=== PATIENT | male | born 1945 | race Caucasian/White ===

== ENCOUNTER → 2017-09-28 | Outpatient (CLI) | payer MEDICARE ==
[2017-09-28 11:57] LABS: Basophils # (A) 0.1 k/uL (0-0.2); Basophils % (A) 1 %; Eosinophils # (A) 0.1 k/uL (0-0.7); Eosinophils % (A) 1 %; HCT 51.9 % (39.0-53.0); Lymphocytes # (A) 1.6 k/uL (1.0-4.8); Lymphocytes % (A) 17 %; MCHC 32.8 g/dL (31.0-37.0); MCV 88.5 fL (80.0-100.0); Mean Platelet Volume 7.3; Monocytes # (A) 0.4 k/uL (0-1.0); Monocytes % (A) 4 %; Neutrophils # (A) 7.1 k/uL (1.3-7.7); Neutrophils % (A) 77 %; Platelet Count 314 k/uL (150-450); RBC 5.86 m/uL (4.30-5.90); RDW 13.4 % (11.5-15.5); WBC 9.3 k/uL (3.8-10.6)
[2017-09-28 12:04] LABS: Potassium 3.5 mmol/L (3.5-5.1)
[2017-09-28 12:34] LABS: Prostate Specific Antigen 5.44 ng/mL (0.00-4.00)
== END | disposition home or self-care (01) ==
LOC: LABWHC1 11:15
PROVIDERS: ATTEND Urology
DX: Z01.818 Encounter for other preprocedural examination (principal); R94.31 Abnormal electrocardiogram [ECG] [EKG]; I10 Essential (primary) hypertension; C61 Malignant neoplasm of prostate; E78.5 Hyperlipidemia, unspecified; R31.29 Other microscopic hematuria; Z01.812 Encounter for preprocedural laboratory examination
CPT/HCPCS: 36415; 80048; 84153; 85025; 87086; 93005

== ENCOUNTER 2017-10-08 11:08 | Day surgery (SDC) | payer MEDICARE ==
[~2017-10-08 11:08] MED LIST: DEXAMETHASONE SOD PHOSPHATE 10 MG/ML 1 ML VIAL IV ONE; HEPARIN SODIUM,PORCINE 5,000 UNIT/ML 1 ML VIAL SQ ONE; LACTATED RINGERS 1,000 ML IV SCH; MIDAZOLAM 2 MG/2 ML VIAL IV PRN; ONDANSETRON ODT 4 MG TAB PO ONE; ceFAZolin IN SWFI 2 GM/20 ML SYRINGE IVP ONE; fentaNYL (PF) 50 MCG/ML 2 ML AMP IV PRN
[2017-10-08] MEDS ORDERED: LACTATED RINGERS 1,000 ML IV ONE ×2 (12:05→15:00)
[2017-10-08] MEDS ORDERED: ONDANSETRON 4 MG/2 ML VIAL IVP ONE (12:10)
[2017-10-08] MEDS ORDERED: hydrALAZINE HCL 20 MG/ML 1 ML VIAL IVP ONE (14:10)
[2017-10-08] MEDS ORDERED: GLYCOPYRROLATE 0.2 MG/ML 2 ML VIAL ONE (14:29)
[2017-10-08] MEDS ORDERED: MIDAZOLAM 2 MG/2 ML VIAL ONE (14:29)
[2017-10-08] MEDS ORDERED: ePHEDrine SULFATE/0.9% NACL/PF 50 MG/5 ML SYRINGE IV ONE (14:29)
[2017-10-08] MEDS ORDERED: ESMOLOL 100 MG/10 ML VIAL ONE (14:29)
[2017-10-08] MEDS ORDERED: VECURONIUM 10 MG VIAL IV ONE (14:29)
[2017-10-08] MEDS ORDERED: SUCCINYLCHOLINE CHLORIDE 100 MG/5 ML SYR IV ONE (14:29)
[2017-10-08] MEDS ORDERED: PROPOFOL 10 MG/ML 20 ML VIAL IV ONE (14:29)
[2017-10-08] MEDS ORDERED: NEOSTIGMINE 1 MG/ML 10 ML VIAL ONE (14:29)
[2017-10-08] MEDS ORDERED: fentaNYL (PF) 50 MCG/ML 2 ML AMP ONE (14:29)
[2017-10-08] MEDS ORDERED: LIDOCAINE 1% INJ 10MG/ML (20 ML MDV) ONE (14:29)
[2017-10-08] MEDS ORDERED: MORPHINE SULFATE 10 MG/ML SYRINGE ONE (14:29)
[2017-10-08] MEDS ORDERED: ceFAZolin IN SWFI 2 GM/20 ML SYRINGE IVP ONE (14:45)
[2017-10-08] MEDS ORDERED: BUPIVACAINE (PF) 0.25% 30 ML VIAL SQ ONE (15:10)
[2017-10-08] MEDS ORDERED: IPRATROPIUM-ALBUTEROL 3 ML NEB INHALATION PRN (18:39)
--- NOTE | 2017-10-08 18:39 | P.OP ---
Date of Procedure: 10/08/17 Preoperative Diagnosis: Adenocarcinoma of the Prostate, Clinical Stage TI CNX M0, Bladder Calculi Postoperative Diagnosis: Same Procedure(s) Performed: Robotic-assisted Laparoscopic Prostatectomy (RALP) with Bilateral Pelvic Lymphadenectomy, Removal of Bladder Calculi Anesthesia: NORMA Surgeon: Liam Ramírez Recyclable Materials Collector #1: Ekaterina Pereira Estimated Blood Loss (ml): 100 IV fluids (ml): 1,600 Pathology: other (Prostate, seminal vesicles, bladder calculi, bilateral pelvic lymph nodes) Condition: stable Disposition: PACU Indications for Procedure: He is a 72 year-old male with a history of BPH and kidney stones. He has no family history of prostate cancer, but his PSA level has risen to 7.8. JACINTA reveals the prostate to be moderately enlarged and smooth. A KUB x-ray and CT scan showed multiple renal and bladder calculi for which he declines treatment at this time. He underwent a prostate ultrasound with biopsies, revealing Devonte 7 adenocarcinoma in 2 of 12 biopsies. Optimal treatment options are RALP and IMRT, and the pros and cons of each were discussed at length. He has elected to undergo a right nerve-sparing RALP with removal of his bladder calculi. He understands the possible need for adjuvant therapy. He also understands the risk of post-op ED and is not overly concerned about this. Operative Findings: 3 bladder calculi. No evidence of extraprostatic disease. Description of Procedure: The patient was taken in the operating room and placed in the dorsal lithotomy position, with his legs supported in Frandy stirrups. He was carefully positioned on a beanbag for stability. The abdomen and external genitalia were prepped and draped sterilely. A Guallpa catheter was inserted. The Veress needle was passed through the anterior abdominal wall immediately cephalad to the umbilicus, and insufflation was performed to a pressure of 20 mm Hg. Once insufflation was performed, the Veress needle was removed and a supraumbilical incision was made, through which a 12 mm camera port was placed. Under camera guidance, 3 8 mm robotic ports were placed, 2 on the left and one on the right. An additional 12 mm port was placed on the right lateral side for use as an billing assistant port. A 5 mm port was placed to the right of the camera port for suction. The patient was placed in Trendelenburg position, and docking was then performed to the da Alena system utilizing a 4-arm approach. The abdomen was examined. The sigmoid colon was mobilized out of the pelvis. The peritoneum was incised lateral to the medial umbilical ligaments bilaterally , exposing the pubis. The peritoneum was then incised across the midline, allowing the bladder flap to be taken down. The endopelvic fascia was opened bilaterally, and muscular attachments from the urogenital diaphragm were swept away from the prostate. Bilateral pelvic lymphadenectomies were performed in the standard fashion. The peritoneal incisions were extended in a cephalad direction, and the vas deferens were divided bilaterally. Margins of dissection were the bifurcation of the iliac vessels proximally, the circumflex iliac vein distally, the external iliac artery laterally, and the obturator nerve medially. A combination of sharp and blunt dissection was used. Care was taken to avoid any neurovascular injury, and the use of monopolar electrocautery was avoided immediately adjacent to neurovascular structures. The lymphatic package was clipped distally. No enlarged lymph nodes were encountered. There were no complications. The vesical neck was incised transversely, down to the lumen. The Guallpa catheter was brought out through the anterior vesical neck incision and was used for traction. The posterior aspect of the vesical neck was incised, such that the full-thickness of the vesical neck was divided. At this time, 3 bladder calculi were removed. The bladder was inspected through the open vesical neck, and no additional calculi were seen. The anterior layer of the Denonvilliers fascia was incised, exposing the vas deferens. Each were isolated and divided. Next, each of the seminal vesicles were dissected away from adjacent tissues, and vascular attachments were cauterized and divided. The posterior leaf of Denonvilliers fascia was incised transversely, allowing entry into the plane between the prostate and rectum. With lateral spreading, this plane was developed down to the apex. This exposed the lateral vascular pedicles bilaterally. These were clipped and divided in an antegrade fashion, down to the apex. The use of electrocautery was avoided on the right side to prevent thermal damage to the nerves, as the right neurovascular bundle was preserved. The remaining apical attachments were swept away from the prostate. The dorsal venous complex was incised, as well as periurethral tissue. At this point, only the urethra remained intact. This was transected immediately distal to the prostatic apex using cold scissors. The specimen was placed within a specimen bag. The dorsal venous complex was sutured using a V-Loc suture in a running fashion. A second V-Loc suture was then used to place the Max stitch, incorporating the rhabdosphincter and the edge of Denonvilliers fascia. This allowed the bladder to be taken down to the urethra, leaving the vesical neck immediately adjacent to the urethra. The vesicourethral anastomosis was then performed using a V-Loc suture in a running fashion. After completing the anastomosis, an 18-Belarusian Guallpa catheter was placed and approximately 150 mL of 0.9 normal saline were instilled into the bladder. No extravasation of irrigant from the vesicourethral anastomosis was noted. Hemostasis was noted at this time to be excellent, and it was thus felt that a drain was unnecessary. The patient was returned to the supine position. Undocking was performed, and the specimen bag sutures were passed through the camera port. After removing all the ports and allowing all of the CO2 to be released from the peritoneal cavity, the camera port incision was enlarged to allow removal of the surgical specimen. The fascia of this incision was then closed using 0 Vicryl suture in an interrupted [id number] fashion. Each of the skin incisions were then closed using 4-0 Monocryl suture in a subcuticular fashion. Marcaine was injected at each of the incision sites. Dermabond was applied to each incision. The Guallpa catheter was connected to gravity drainage. All sponge and needle counts were correct. The patient tolerated the procedure well was taken to the recovery room in stable condition.
[2017-10-08] MEDS ORDERED: ONDANSETRON 4 MG/2 ML VIAL IVP PRN (18:40)
[2017-10-08] MEDS ORDERED: MORPHINE SULFATE 4 MG/0.8 ML SYRINGE (INJ) IVP PRN (18:40)
[2017-10-08] MEDS ORDERED: KETOROLAC 30 MG/ML 1 ML VIAL IVP PRN (18:40)
[2017-10-08 20:37] VITALS: BMI 31.6
[2017-10-08] MEDS ORDERED: LISINOPRIL 20 MG TAB PO SCH (21:00)
[2017-10-08] MEDS ORDERED: ATORVASTATIN 10 MG TAB PO SCH (21:00)
[2017-10-08] MEDS ORDERED: METOPROLOL SUCCINATE (ER) 50 MG TAB.ER.24H PO SCH (21:00)
[2017-10-08] MEDS ORDERED: FLUTICASONE 50MCG/SPRAY NASAL 16GM EA NOSTRIL SCH (21:00)
[2017-10-08] MEDS ORDERED: amLODIPine 10 MG TAB PO SCH (21:00)
[2017-10-08] MEDS: DEXTROSE 5%-0.45% NACL 1,000 ML IV SCH (22:25)
[2017-10-08] MEDS: HEPARIN SODIUM,PORCINE 5,000 UNIT/ML 1 ML VIAL SQ SCH (22:26)
[2017-10-09] MEDS: DEXTROSE 5%-0.45% NACL 1,000 ML IV SCH ×2 (03:55→06:03)
[2017-10-09] MEDS: ACETAMINOPHEN TAB 325 MG TAB PO PRN ×2 (05:55→09:44)
[2017-10-09] MEDS ORDERED: LOSARTAN-HCTZ 50-12.5 MG 1 EACH TAB PO SCH (09:00)
[2017-10-09 09:21] VITALS: BP 120/66; PULSE 53; RESP 20; TEMP 99.2
[2017-10-09] MEDS: HEPARIN SODIUM,PORCINE 5,000 UNIT/ML 1 ML VIAL SQ SCH (09:23)
--- NOTE | 2017-10-09 10:09 | P.DS ---
Providers Attending physician: Liam Ramírez Primary care physician: [facility] Course: The patient was admitted yesterday for robotic-assisted radical prostatectomy by . He did well overnight. His vital signs are stable. He is tolerated a liquid diet. He'll ambulate and eat a regular diet this morning. If his pain is under control he can ambulate and dress he'll be discharged home. He'll go home with a Guallpa catheter. He's been given a prescription of Strawn. He'll follow-up in the office in [address] Ramírez for catheter removal and path report. Postoperative instructions have been given. Patient Condition at Discharge: Good Plan - Discharge Summary Discharge Rx Participant: No New Discharge Prescriptions: New Ciprofloxacin HCl [Cipro] 250 mg PO Q12HR #6 tablet Hydrocodone/Acetaminophen [Strawn 5-325] 1 - 2 each PO Q4HR PRN #20 tab PRN Reason: Pain No Action Tamsulosin [Flomax] 0.4 mg PO HS Lisinopril [Zestril] 20 mg PO HS Cholecalciferol [Vitamin D3] 1,000 unit PO DAILY Ascorbic Acid [Vitamin C] 500 mg PO DAILY amLODIPine [Norvasc] 10 mg PO HS Aspirin 81 mg PO HS Vitamin E 100 unit PO DAILY Triamcinolone Acetonide [Nasacort] 2 spray EA NOSTRIL HS Theralogix 1 tab PO DAILY Simvastatin [Zocor] 20 mg PO HS Metoprolol Succinate [Toprol Xl] 50 mg PO HS Losartan/Hydrochlorothiazide [Losartan-Hctz 100-25 mg Tab] 1 each PO DAILY Ipratropium-Albuterol Nebulize [Duoneb 0.5 mg-3 mg/3 ml Soln] 3 ml INHALATION Q6H PRN PRN Reason: Dyspnea Glucosamine/Chondr Lynn A Sod [Osteo Bi-Flex Caplet] 1 each PO DAILY Acetaminophen [Tylenol Arthritis] 1,300 mg PO BID Discharge Medication List Acetaminophen [Tylenol Arthritis] 1,300 mg PO BID 09/29/17 [History] Ascorbic Acid [Vitamin C] 500 mg PO DAILY 09/29/17 [History] Aspirin 81 mg PO HS 09/29/17 [History] Cholecalciferol [Vitamin D3] 1,000 unit PO DAILY 09/29/17 [History] Glucosamine/Chondr Lynn A Sod [Osteo Bi-Flex Caplet] 1 each PO DAILY 09/29/17 [ History] Ipratropium-Albuterol Nebulize [Duoneb 0.5 mg-3 mg/3 ml Soln] 3 ml INHALATION Q6H PRN 09/29/17 [History] Lisinopril [Zestril] 20 mg PO HS 09/29/17 [History] Losartan/Hydrochlorothiazide [Losartan-Hctz 100-25 mg Tab] 1 each PO DAILY 09/29 [History] Metoprolol Succinate [Toprol Xl] 50 mg PO HS 09/29/17 [History] Simvastatin [Zocor] 20 mg PO HS 09/29/17 [History] Tamsulosin [Flomax] 0.4 mg PO HS 09/29/17 [History] Theralogix 1 tab PO DAILY 09/29/17 [History] Triamcinolone Acetonide [Nasacort] 2 spray EA NOSTRIL HS 09/29/17 [History] Vitamin E 100 unit PO DAILY 09/29/17 [History] amLODIPine [Norvasc] 10 mg PO HS 09/29/17 [History] Ciprofloxacin HCl [Cipro] 250 mg PO Q12HR #6 tablet 10/08/17 [Rx] Hydrocodone/Acetaminophen [Strawn 5-325] 1 - 2 each PO Q4HR PRN #20 tab 10/08/17 [Rx] Follow up Appointment(s)/Referral(s): Liam Ramírez MD [STAFF PHYSICIAN] - 10/18/17 Activity/Diet/Wound Care/Special Instructions: Discharge home with Guallpa catheter. No lifting, driving, or strenuous activity. Patient is to begin taking ciprofloxacin on 10/17/2017. Discharge Disposition: HOME SELF-CARE
== END 2017-10-09 14:52 | disposition home or self-care (01) ==
LOC: OR 11:08 → 3SUR 18:28 → OR 10-09 14:52
PROVIDERS: ATTEND Urology
DX: C61 Malignant neoplasm of prostate (principal); N21.0 Calculus in bladder; N20.0 Calculus of kidney; I10 Essential (primary) hypertension; I25.10 Atherosclerotic heart disease of native coronary artery without angina pectoris; E78.00 Pure hypercholesterolemia, unspecified; J44.9 Chronic obstructive pulmonary disease, unspecified; J61 Pneumoconiosis due to asbestos and other mineral fibers; M19.90 Unspecified osteoarthritis, unspecified site; G56.00 Carpal tunnel syndrome, unspecified upper limb; E66.9 Obesity, unspecified; Z68.30 Body mass index [BMI] 30.0-30.9, adult; Z79.82 Long term (current) use of aspirin; Z79.51 Long term (current) use of inhaled steroids; Z79.899 Other long term (current) drug therapy; Z91.030 Bee allergy status; Z87.891 Personal history of nicotine dependence
CPT/HCPCS: 38571; 51050; 55866; 88307; 88309; 88300; 82365; J2250; J1644 ×2; J1100; J2710; J2270; J2405; J2001; J3010; J1885; J0330; J2704; J0690; 86850; 86900; 86901

== ENCOUNTER → 2017-11-18 | Outpatient (CLI) | payer MEDICARE | END | disposition home or self-care (01) | LOC: LABWHC1 08:30 | PROVIDERS: ATTEND Urology | DX: C61 Malignant neoplasm of prostate (principal) | CPT/HCPCS: 36415; 84153 ==

== ENCOUNTER → 2018-02-15 | Outpatient (CLI) | payer MEDICARE | END | disposition home or self-care (01) | LOC: LABWHC1 07:59 | PROVIDERS: ATTEND Urology | DX: C61 Malignant neoplasm of prostate (principal) | CPT/HCPCS: 36415; 84153 ==

== ENCOUNTER → 2018-05-17 | Outpatient (CLI) | payer MEDICARE | END | disposition home or self-care (01) | LOC: LABWHC1 09:13 | PROVIDERS: ATTEND Urology | DX: C61 Malignant neoplasm of prostate (principal) | CPT/HCPCS: 36415; 84153 ==

== ENCOUNTER → 2018-10-17 | Outpatient (CLI) | payer MEDICARE ==
--- NOTE | 2018-10-17 10:46 | XR ---
EXAMINATION TYPE: XR KUB DATE OF EXAM: 10/17/2018 10:33 AM CLINICAL HISTORY: Calculus of ureter with stents. TECHNIQUE: Two Upright KUB images of the abdomen are obtained. COMPARISON: Abdominal x-ray May 25, 2017. CT abdomen and pelvis May 26, 2017. FINDINGS: There is interval placement of bilateral double-J ureter stents. Left-sided nephrolithiasis remains present with 5 --6 scattered calculi measuring up to 9 mm on long axis. There is suspected s ome passage of right sided calculus into proximal right ureter with 12 mm calculus suspected though t his is suboptimal in evaluation due to marked overlying colonic fecal material. Previously visualized 12 mm calculus lower pole of the right kidney is not clearly seen on today's plain films. Overall dextroconvex scoliosis with multilevel spurring is redemonstrated. Lung bases are clear. Over all nonobstructive bowel gas pattern. IMPRESSION: New double-J ureter stents. Stable left-sided nephrolithiasis. Possible beginning passage of right ureter calculus to proximal ureter level.
== END | disposition home or self-care (01) ==
LOC: LABWHC1 09:41
PROVIDERS: ATTEND Urology
DX: N20.0 Calculus of kidney (principal); C61 Malignant neoplasm of prostate; Z96.0 Presence of urogenital implants
CPT/HCPCS: 36415; 74018; 84153

== ENCOUNTER → 2018-10-28 | Outpatient (CLI) | payer MEDICARE ==
[2018-10-28 11:05] LABS: Potassium 3.9 mmol/L (3.5-5.1)
[2018-10-28 11:10] LABS: Anisocytosis Slight; Basophils # (A) 0.1 k/uL (0-0.2); Basophils % (A) 1 %; Eosinophils # (A) 0.3 k/uL (0-0.7); Eosinophils % (A) 4 %; HCT 37.7 % (39.0-53.0); HGB 11.3 gm/dL (13.0-17.5); Hypochromasia Moderate; Lymphocytes % (A) 12 %; MCH 25.3 pg (25.0-35.0); MCV 84.3 fL (80.0-100.0); Mean Platelet Volume 6.8; Monocytes # (A) 0.6 k/uL (0-1.0); Monocytes % (A) 7 %; Neutrophils # (A) 6.2 k/uL (1.3-7.7); Neutrophils % (A) 75 %; Platelet Count 320 k/uL (150-450); RBC 4.46 m/uL (4.30-5.90); RDW 17.4 % (11.5-15.5); WBC 8.3 k/uL (3.8-10.6)
== END | disposition home or self-care (01) ==
LOC: LABPAT 09:27
PROVIDERS: ATTEND Urology
DX: Z01.812 Encounter for preprocedural laboratory examination (principal); N20.0 Calculus of kidney
CPT/HCPCS: 36415; 80051; 82565; 84520; 85025

== ENCOUNTER 2018-10-31 06:51 | Day surgery (SDC) | payer MEDICARE ==
[2018-10-26 14:08] VITALS: BMI 28.1
--- NOTE | 2018-10-27 08:15 | P.GSHP ---
History of Present Illness H&P Date: 10/27/18 Chief Complaint: Renal calculi The patient is a 73-year-old white male who underwent a robotic-assisted laparoscopic prostatectomy for prostate cancer in September 2017. He was hospitalized in [place] in June 2018 with Enterobacter sepsis of UTI origin, complicated by an 8 mm right proximal ureteral calculus. He underwent bilateral ureteral stent insertion at that time, and had a lengthy hospitalization. His stents remain in place. A KUB x-ray shows an 8 mm right proximal ureteral calculus, as well as multiple left renal calculi measuring up to 9 mm in size. He now comes for extracorporal shockwave lithotripsy (ESWL) to treat the larger of the left renal calculi. - Constitutional Constitutional: Denies chills, Denies fever - Gastrointestinal Gastrointestinal: Denies nausea, Denies vomiting - Genitourinary (Female) Genitourinary: Reports kidney stones, Denies hematuria Past Medical History Past Medical History: Cancer, Hyperlipidemia, Hypertension, Osteoarthritis (OA), Prostate Disorder Additional Past Medical History / Comment(s): hx. prostate cancer 2018, hx. asbestosis, chronic back & neck pain, hx. sepsis in June in [place] due to kidney stone blocking ureter, foot swelling History of Any Multi-Drug Resistant Organisms: None Reported Past Surgical History: Appendectomy, Cholecystectomy, Heart Catheterization, Orthopedic Surgery, Prostate Surgery Additional Past Surgical History / Comment(s): ORIF right wrist, right shoulder surg, prostatectomy, cystoscopy w/bilateral ureteral stents Past Anesthesia/Blood Transfusion Reactions: No Reported Reaction Smoking Status: Former smoker - Past Family History Mother Family Medical History: No Reported History Medications and Allergies Home Medications Medication Instructions Recorded Confirmed Type Acetaminophen [Tylenol Arthritis] 1,300 mg PO BID PRN 09/29/17 10/26/18 History Metoprolol Succinate [Toprol Xl] 50 mg PO HS 09/29/17 10/26/18 History amLODIPine [Norvasc] 10 mg PO HS 09/29/17 10/26/18 History Allergies Allergy/AdvReac Type Severity Reaction Status Date / Time bee pollen Allergy Anaphylaxis Verified 10/26/18 14:03 Surgical - Exam - General well developed, well nourished, no distress - Respiratory normal respiratory effort, clear to auscultation - Cardiovascular Rhythm: regular Abnormal Heart Sounds: no systolic murmur, no diastolic murmur, no rub, no S3 Gallop, no S4 Gallop, no click, no other - Psychiatric oriented to time, oriented to person, oriented to place, speech is normal, memory intact Assessment and Plan (1) Calculus of kidney Status: Acute Code(s): N20.0 - CALCULUS OF KIDNEY SNOMED Code(s): 83145855 (2) Calculus of ureter Status: Acute Code(s): N20.1 - CALCULUS OF URETER SNOMED Code(s): 96151548 Plan: I discussed with the patient and his the treatment of the calculus with ESWL to decrease the left renal calculi stone burden. I explained the possible need for repeat ESWL or alternative treatment in the event of treatment failure or incomplete fragmentation. I discussed the risks of ESWL, including anesthesia, and collateral damage to other organs. The patient expressed an understanding of the procedure and risks including but not limited to bleeding, infection, obstruction, and rarely injury to other organs such as the liver or spleen. The patient was advised that renal contusions are common, resulting in hematuria. The possibility of a perinephric hematoma was also discussed. He was subsequently undergo cystoscopy with bilateral ureteral stent removal. Ureteroscopy with laser lithotripsy will be performed to treat the right proximal ureteral calculus as well as residual left renal calculi.
[~2018-10-31 06:51] MED LIST changes: -DEXAMETHASONE SOD PHOSPHATE 10 MG/ML 1 ML VIAL IV ONE; -HEPARIN SODIUM,PORCINE 5,000 UNIT/ML 1 ML VIAL SQ ONE; +LEVOFLOXACIN 500MG-D5W PMX 500 MG in DEXTROSE/WATER 1 100ML.BAG IVPB ONE; -MIDAZOLAM 2 MG/2 ML VIAL IV PRN; -ONDANSETRON ODT 4 MG TAB PO ONE; -ceFAZolin IN SWFI 2 GM/20 ML SYRINGE IVP ONE; -fentaNYL (PF) 50 MCG/ML 2 ML AMP IV PRN
[2018-10-31 07:43] VITALS: RESP 16; TEMP 97.2
--- NOTE | 2018-10-31 07:49 | XR ---
EXAMINATION TYPE: XR KUB DATE OF EXAM: 10/31/2018 COMPARISON: 10/17/2018 HISTORY: Pain TECHNIQUE: One view abdominal series FINDINGS: Bilateral double-J stents are seen and there is a stable appearing bilateral calcifications. The larg est is seen on the right measuring 1.4 cm. Scoliosis and degenerative changes spine. Bowel gas patter n nonspecific. IMPRESSION: 1. Bilateral renal calculi appear stable.
[2018-10-31] MEDS ORDERED: LIDOCAINE 1% 20 ML VIAL (10MG/ML) FOR IV START INTRADERMA ONE (07:51)
[2018-10-31] MEDS ORDERED: fentaNYL (PF) 50 MCG/ML 2 ML AMP ONE (08:29)
[2018-10-31] MEDS ORDERED: KETAMINE 10 MG/ML 20 ML VIAL ONE (08:29)
[2018-10-31] MEDS ORDERED: GLYCOPYRROLATE 0.2 MG/ML 2 ML VIAL ONE (08:29)
[2018-10-31] MEDS ORDERED: LIDOCAINE 1% INJ 10MG/ML (20 ML MDV) ONE (08:29)
[2018-10-31] MEDS ORDERED: PROPOFOL 10 MG/ML 20 ML VIAL IV ONE (08:29)
[2018-10-31] MEDS ORDERED: MIDAZOLAM 2 MG/2 ML VIAL ONE (08:29)
--- NOTE | 2018-10-31 09:22 | P.OP ---
Date of Procedure: 10/31/18 Preoperative Diagnosis: Left renal calculi Postoperative Diagnosis: Same Procedure(s) Performed: Left extracorporeal shockwave lithotripsy (ESWL) Anesthesia: MAC Surgeon: Liam Ramírez Estimated Blood Loss (ml): 0 IV fluids (ml): 250 Pathology: none sent Condition: stable Disposition: PACU Indications for Procedure: The patient is a 73-year-old white male who underwent a robotic-assisted laparoscopic prostatectomy for prostate cancer in September 2017. He was hospitalized in [place] in June 2018 with Enterobacter sepsis of UTI origin, complicated by an 8 mm right proximal ureteral calculus. He underwent bilateral ureteral stent insertion at that time, and had a lengthy hospitalization. His stents remain in place. A KUB x-ray shows an 8 mm right proximal ureteral calculus, as well as multiple left renal calculi measuring up to 9 mm in size. He now comes for extracorporal shockwave lithotripsy (ESWL) to treat the larger of the left renal calculi. Operative Findings: Fragmentation of the left lower pole calculus which was treated was noted to occur. Description of Procedure: The patient was taken to the operating room and placed on the [employer] Delta II lithotripter in the supine position. The calculi were seen on biplanar fluoroscopy. Once the patient was properly positioned and sedated, lithotripsy was performed. The decision was made to treat the largest calculus, a 9 mm calculus located within a lower pole calyx. The energy level was gradually increased per protocol, to an energy level of 5. After 200 shocks were administered, a 2 minute pause was instituted per protocol. A total of 2500 shocks were given at a rate of 80 shocks per minute. Fluoroscopy was utilized at a minimum to ensure proper positioning and determine the treatment status. The appearance of the calculus appeared to change, suggesting fragmentation had occurred. The patient tolerated the procedure well was taken to the recovery room in stable condition. Instructions were given to strain the urine, and the patient will follow-up within one week.
[2018-10-31 09:46] VITALS: BP 138/72; PULSE 61
== END 2018-10-31 10:39 | disposition home or self-care (01) ==
LOC: ORWHC2ENDO 06:51
PROVIDERS: ATTEND Urology
DX: N20.2 Calculus of kidney with calculus of ureter (principal); I10 Essential (primary) hypertension; E78.5 Hyperlipidemia, unspecified; M19.90 Unspecified osteoarthritis, unspecified site; Z90.79 Acquired absence of other genital organ(s); Z85.46 Personal history of malignant neoplasm of prostate; Z86.19 Personal history of other infectious and parasitic diseases; Z96.0 Presence of urogenital implants; Z87.891 Personal history of nicotine dependence; Z79.899 Other long term (current) drug therapy; Z91.030 Bee allergy status
CPT/HCPCS: 74018; 50590; J2250; J1956; J2001; J3010; J2704

== ENCOUNTER → 2018-11-08 | Outpatient (CLI) | payer MEDICARE ==
--- NOTE | 2018-11-08 08:38 | XR ---
EXAMINATION TYPE: XR KUB DATE OF EXAM: 11/08/2018 8:21 AM CLINICAL HISTORY: Kidney stones with lithotripsy October 31, 2018 TECHNIQUE: Two supine KUB images of the abdomen are obtained. COMPARISON: Most recent abdominal x-ray October 31, 2018 and older studies. FINDINGS: Bilateral double-J ureter stents are redemonstrated. There is stable positioning of 11 mm p roximal right ureter calculus near lateral aspect of ureter stent. There is redemonstration of 6-8 left-sided renal calculi overall with successful fragmentation of lar gest central calculus. There is now 6 mm calculus fragment distal left ureter near inferior margin le ft sacroiliac joint along ureter stent. Overall nonobstructive bowel gas pattern. Underlying dextroconvex scoliosis with multilevel disc spac e narrowing and spurring throughout the thoracolumbar spine is present. IMPRESSION: Interval fragmentation of largest left renal calculus with passage into distal ureter jimena ng the stent.
== END | disposition home or self-care (01) ==
LOC: RADXRMAIN 08:02
PROVIDERS: ATTEND Urology
DX: N20.2 Calculus of kidney with calculus of ureter (principal)
CPT/HCPCS: 74018

== ENCOUNTER → 2019-01-06 | Outpatient (CLI) | payer MEDICARE ==
--- NOTE | 2019-01-06 10:26 | XR ---
EXAMINATION TYPE: XR KUB DATE OF EXAM: 01/06/2019 HISTORY: Pain Comparison: 11/08/2018 Single KUB is submitted for interpretation. Findings: Right renal calculi: Previously noted right-sided renal calculi not the well seen at this time. Overl harjeet bowel content does limit evaluation. Right ureteral calculi: Previously noted right-sided ureteral vent has been removed. No definite mayank culi along the expected course of the right ureter. Left renal calculi: Previously noted left-sided renal calculi not well visualized. Examination limit ed by overlying bowel content. Left ureteral calculi: Previously noted left-sided ureteral stent is also been removed. No definite calculi along the expected course of the left ureter. Pelvic calcifications: None Visualized. Bowel gas pattern is unremarkable. No free air. No mass effects. IMPRESSION: 1. No definite nephrolithiasis or ureterolithiasis
== END | disposition home or self-care (01) ==
LOC: RADXRMAIN 10:07
PROVIDERS: ATTEND Urology
DX: N20.0 Calculus of kidney (principal)
CPT/HCPCS: 74018

== ENCOUNTER → 2019-02-14 | Outpatient (CLI) | payer MEDICARE ==
--- NOTE | 2019-02-14 14:30 | US ---
EXAMINATION TYPE: US kidneys/renal and bladder DATE OF EXAM: 02/14/2019 COMPARISON: NONE CLINICAL HISTORY: R93.4. History of stones EXAM MEASUREMENTS: Right Kidney: 10.1 x 5.0 x 5.1 cm Left Kidney: 10.7 x 5.7 x 5.0 cm Right Kidney: Pelvocaliectasis is seen. No discrete calculi. Left Kidney: Minimal hydronephrosis. Multiple stones visualized, largest lower pole measuring 1.1 cm Bladder: wnl as visualized, not fully distended Bilateral Jets seen: Yes Urinary bladder is incompletely distended but anechoic with bilateral ureteral jets seen. Bilateral m ild cortical renal thinning. IMPRESSION: Minimal left-sided hydronephrosis with multiple nonobstructing renal calculi on the left and mild rig ht pelvocaliectasis.
== END | disposition home or self-care (01) ==
LOC: RADUSWWP 12:20
PROVIDERS: ATTEND Urology
DX: N13.2 Hydronephrosis with renal and ureteral calculous obstruction (principal); N28.89 Other specified disorders of kidney and ureter
CPT/HCPCS: 76770

== ENCOUNTER → 2019-04-04 | Outpatient (CLI) | payer MEDICARE | END | disposition home or self-care (01) | LOC: LABWHC1 10:54 | PROVIDERS: ATTEND Urology | DX: C61 Malignant neoplasm of prostate (principal) | CPT/HCPCS: 36415; 84153 ==

== ENCOUNTER → 2019-05-03 | Outpatient (CLI) | payer MEDICARE | LOC: LABWHC1 11:00 | PROVIDERS: ATTEND Urology | DX: N20.0 Calculus of kidney (principal); R82.991 Hypocitraturia | CPT/HCPCS: 36415; 80051 ==

== ENCOUNTER → 2021-10-17 | Outpatient (CLI) | payer MEDICARE | END | disposition home or self-care (01) | LOC: LABWHC1 13:20 | PROVIDERS: ATTEND Urology | DX: C61 Malignant neoplasm of prostate (principal) | CPT/HCPCS: 36415; 84153 ==

== ENCOUNTER → 2021-11-14 | Outpatient (CLI) | payer MEDICARE | END | disposition home or self-care (01) | LOC: LABPAT 09:24 | PROVIDERS: ATTEND Orthopaedic Surgery | DX: Z01.812 Encounter for preprocedural laboratory examination (principal); Z22.322 Carrier or suspected carrier of Methicillin resistant Staphylococcus aureus; M16.11 Unilateral primary osteoarthritis, right hip | CPT/HCPCS: 87070 ==

== ENCOUNTER 2021-11-24 10:44 | Day surgery (SDC) | payer MEDICARE ==
[2021-11-20 10:45] VITALS: BMI 29.9
--- NOTE | 2021-11-23 14:48 | HP ---
HISTORY AND PHYSICAL REASON FOR ADMISSION: Surgery 11/24/2021 HISTORY OF PRESENT ILLNESS: Johan Garcia is a 76-year-old patient seen with symptomatic right hip osteoarthritis. We discussed options for treatment. He elected to proceed with direct anterior right total hip arthroplasty. Consent regarding procedure was obtained. Medical clearance was provided by Dr. Sebas Kirby. Cardiac clearance was provided by Dr. Lima. PAST MEDICAL HISTORY: Hypercholesterolemia, hypertension. PAST SURGICAL HISTORY: Carpal tunnel release, shoulder arthroscopy. MEDICATIONS: Aspirin, amlodipine, losartan, metoprolol. ALLERGIES: None reported. SOCIAL HISTORY: Denies tobacco use. PHYSICAL EXAMINATION: Evaluation of the right hip: Range of motion is very limited with severe pain, diffuse tenderness. Positive hip impingement sign. Straight-leg raise is negative. Distal neurovascular exam is intact. RADIOGRAPHS: Radiographs of the right hip reveal severe osteoarthritic changes. IMPRESSION: 1. Right hip osteoarthritis. 2. Hypertension. 3. Cardiovascular disease. PLAN: Direct anterior right total hip arthroplasty. Surgery scheduled for 11/24/2021. MMODL / IJN: [id number] /
[~2021-11-24 10:44] MED LIST changes: +ACETAMINOPHEN TAB 500 MG TAB PO PRN; -LACTATED RINGERS 1,000 ML IV SCH; -LEVOFLOXACIN 500MG-D5W PMX 500 MG in DEXTROSE/WATER 1 100ML.BAG IVPB ONE; +MELOXICAM 7.5 MG TAB PO PRN; +TRANEXAMIC ACID IN NACL,ISO-OS 1,000 MG in SALINE 1 100ML.BAG IVPB PRN; +VANCOMYCIN 1,500 MG in SODIUM CHLORIDE 0.9% 250 ML IVPB PRN
[2021-11-24 11:22] VITALS: RESP 16
[2021-11-24] MEDS ORDERED: ONDANSETRON 4 MG/2 ML VIAL ONE (11:35)
[2021-11-24] MEDS ORDERED: DEXAMETHASONE SOD PHOSPHATE 4 MG/ML 1 ML VIAL IVP ONE (12:08)
[2021-11-24] MEDS ORDERED: ONDANSETRON 4 MG/2 ML VIAL IVP ONE ×2 (12:08→16:34)
[2021-11-24] MEDS ORDERED: LACTATED RINGERS 1,000 ML IV ONE ×2 (12:16→13:37)
[2021-11-24] MEDS ORDERED: MIDAZOLAM 2 MG/2 ML VIAL IVP ONE (12:25)
[2021-11-24] MEDS ORDERED: fentaNYL (PF) 50 MCG/ML 2 ML AMP IVP ONE (12:40)
[2021-11-24] MEDS ORDERED: PROPOFOL 10 MG/ML 20 ML VIAL IV ONE (12:54)
[2021-11-24] MEDS ORDERED: MIDAZOLAM 2 MG/2 ML VIAL ONE (12:54)
[2021-11-24] MEDS ORDERED: TRANEXAMIC ACID IN NACL,ISO-OS 1,000 MG/100 ML BAG ONE (12:54)
[2021-11-24] MEDS ORDERED: ROPIVACAINE 5 MG/ML 30 ML VIAL ONE (12:54)
[2021-11-24] MEDS ORDERED: fentaNYL (PF) 50 MCG/ML 2 ML AMP ONE (12:54)
[2021-11-24] MEDS ORDERED: ceFAZolin 1,000 MG in SODIUM CHLORIDE 0.9% 1,000 ML IRRIGATION ONE (13:37)
[2021-11-24] MEDS ORDERED: HYDROmorphone 0.5 MG/0.5 ML SYRINGE IVP PRN ×4 (14:54→16:34)
[2021-11-24] MEDS ORDERED: ONDANSETRON 4 MG/2 ML VIAL IVP PRN (14:54)
[2021-11-24] MEDS ORDERED: NALOXONE 0.4 MG/ML 1 ML VIAL IV PRN (14:54)
[2021-11-24] MEDS ORDERED: HYDROcodone/APAP 5-325MG 1 EACH TAB PO PRN (14:54)
--- NOTE | 2021-11-24 14:54 | P.OP ---
Date of Procedure: 11/24/21 Preoperative Diagnosis: Right hip osteoarthritis Postoperative Diagnosis: Right hip osteoarthritis Procedure(s) Performed: Direct anterior right total hip arthroplasty Implants: 1. Depuy [place]ail 135 with collar KA size 11 press-fit femoral stem 2. Depuy [place] 54 mm press-fit acetabular shell 3. Depuy [place] neutral polyethylene acetabular liner 36 mm ID 54 mm OD 4. Depuy Biolox delta ceramic femoral head +1.5 36 mm Anesthesia: regional (Fascia iliaca block), spinal Surgeon: Kenrick Gorman House Visitor #1: Lyle Valenzuela Estimated Blood Loss (ml): 45 Pathology: other (Femoral head) Condition: stable Disposition: PACU Indications for Procedure: 76-year-old patient seen with symptomatic right hip osteoarthritis. After treatment options were discussed, he elected to proceed with direct anterior right total hip arthroplasty. Operative Findings: See description of procedure Description of Procedure: The patient was taken to the operative suite after having a fascia iliaca block performed for postoperative pain management by the department of anesthesia. Patient underwent a spinal anesthetic by the department of anesthesia. Patient was then transferred to the [place] table. Patient was given preoperative IV antibiotics and TXA. Both lower extremities were placed in standard leg spars. The hip was then prepped and draped in the normal sterile orthopedic fashion. A standard anterior incision was made beginning 3 cm lateral and 1 cm distal to the ASIS extending 10 cm. Dissection was then carried down through the subcutaneous soft tissues down to the fascia overlying the tensor fascia marek. An incision was now made through the fascia. Careful dissection was taken down exposing the tensor fascia marek muscle. A Cobra retractor was now placed along the medial femoral neck and a second one along the lateral femoral neck. The venous circumflex vessels were now identified, cauterized and clipped. We identified the anterior hip capsule. An incision was made through the hip capsule along the lateral border. I performed a partial anterior capsulectomy. Retractors were now placed around the femoral neck itself. A femoral neck cut was now made with a sagittal saw. It was completed with an osteotome at the lateral neck area. The femoral head was now removed without difficulty. The extremity was now rotated to 45 of external rotation. It was locked in position. Residual labrum was now debrided out. Serial reaming was performed of the acetabulum while Rigo GUAJARDO assisted holding an anterior retractor for exposure. Once we reached the appropriate size and a trial was position and fit nicely. The appropriate size was now chosen opened and made available. It was introduced into the acetabulum without difficulty. The C-arm/fluoroscopy was now brought into the operative field. We made sure we had a true AP pelvic view. We now under direct C-arm/fluoroscopy introduced into the acetabular component with appropriate version and inclination. I held the cup in appropriate position well Rigo GUAJARDO used a mallet to seat the acetabular component. I noted the component now to be well seated and stable. Acetabular cup introduce her was removed. The C-arm was pulled back. An appropriate liner was introduced and clicked into position. It was felt to be stable. At this point retractors were removed. The extremity was now placed into 120 external rotation with no traction. The leg was now dropped to the ground and adducted. Appropriate retractors were now positioned along the proximal femur. We also placed our femoral look into position. Additional capsular releasing was performed to gain access to the proximal femur. We now used a box osteotome. A canal finder was now utilized. Serial broaching was now performed with the assistance of Rigo GUAJARDO tapping the broaches down with a mallet while held the broach in appropriate rotation and position. This was done until we reached the appropriate size with good overall rotational stability. Appropriate calcar planing was performed. A trial head/neck was placed into position. The hip was now reduced. The C-arm/fluoroscopy was brought back into the operative field. I obtained an AP pelvis demonstrating adequate leg length alignment. The trial components appeared appropriately sized and positioned. The C-arm/fluoroscopy was pulled back. Retractors were repositioned and the hip was dislocated. The leg was again taken down to the ground and adducted. Appropriate retractors were repositioned as well as the femoral hook. All trial components were removed. The femoral implant was opened along with the femoral head. The femoral implant was introduced on the appropriate handle into our pre-broached area. I held the component position well Rigo GUAJARDO used a mallet to seat the femoral component. The femoral component was now noted to be well seated and stable.. The femoral head was introduced with good positioning and fixation noted. Retractors were now removed. The hip was now reduced. There appeared be good positioning of the hip confirmed on intraoperative fluoroscopy. Spot films were obtained to document this. A second gram of TXA was given. The deep and superficial soft tissues were infiltrated with local analgesic. Bipolar cautery had been utilized intermittently through the procedu re for hemostasis. The wound was irrigated copiously with pulse lavage mechanical irrigation. The fascia was repaired with Vicryl suture. The subcutaneous soft tissues were repaired in layers with Vicryl suture. The skin was approximated with pernio/Dermabond. Sterile dressings were applied. Patient was then awakened, transferred to a bed and taken to recovery in stable condition. Rigo GUAJARDO assisted with the complex procedure.
[2021-11-24] MEDS ORDERED: SODIUM CHLORIDE 0.9% 1,000 ML IV SCH (15:00)
[2021-11-24] MEDS ORDERED: HYDROmorphone 0.5 MG/0.5 ML SYRINGE IVP ONE (15:31)
[2021-11-24] MEDS ORDERED: LACTATED RINGERS 1,000 ML IV SCH (16:34)
[2021-11-24] MEDS ORDERED: DEXAMETHASONE SOD PHOSPHATE 4 MG/ML 1 ML VIAL IV ONE (16:34)
--- NOTE | 2021-11-24 17:15 | P.ANPRN ---
Procedure Note - Anesthesia - Nerve Block Performed Right Erector Spinae Single Time Out Performed: Yes (1224) Date of Procedure: 11/24/21 Procedure Start Time: 12:25 Procedure Stop Time: :30 Indication: Acute Post-Operative Pain, Requested by Surgeon Specifically requested for management of pain by DrFlora: Kenrick Gorman Sedation Type: Sedate with meaningful contact maintained Preparation: Sterile Prep Position: Supine Catheter: None Needle Types: Pajunk Needle Gauge: 21 Ultrasound used to visualize needle placement: Yes Ultrasound used to observe medication spread: Yes Injectate: 0.5% Ropivacaine (see comment for volume) (30cc) Blood Aspirated: No Pain Paresthesia on Injection Noted: No Resistance on Injection: Normal Image Stored and Saved: Yes Events: Uneventful and Well Tolerated
[2021-11-24] MEDS: HYDROcodone/APAP 7.5-325MG 1 EACH TAB PO PRN (19:51)
[2021-11-24] MEDS ORDERED: SENNOSIDES-DOCUSATE SODIUM 1 EACH TAB PO SCH (21:00)
--- NOTE | 2021-11-24 21:12 | FL ---
EXAMINATION TYPE: FL guidance operating room, XR Hip Limited RT DATE OF EXAM: 11/24/2021 CLINICAL HISTORY: Right hip pain and osteoarthritis. TECHNIQUE: Fluoroscopy. Limited intraoperative views right hip. COMPARISON: Pelvic x-ray October 14, 2021. FINDINGS: Fluoroscopic guidance was provided during right hip replacement procedure performed by Dr. Gorman. A total of 14 seconds of fluoroscopic time was utilized during the procedure and 1 spot images was acquired. Single intraoperative image acquired show metallic hardware from total right hip arthroplasty satisfa ctory in position on frontal projection. IMPRESSION: As Above.
[2021-11-25] MEDS ORDERED: VANCOMYCIN 1,500 MG in SODIUM CHLORIDE 0.9% 250 ML IVPB ONE ×2
[2021-11-25] MEDS: HYDROcodone/APAP 7.5-325MG 1 EACH TAB PO PRN ×2 (01:08→08:51)
[2021-11-25 07:59] VITALS: BP 167/74; PULSE 54; TEMP 98.2
[2021-11-25] MEDS ORDERED: hydroCHLOROthiazide 25 MG TAB PO SCH (09:00)
[2021-11-25] MEDS ORDERED: PANTOPRAZOLE 40 MG/10 ML VIAL IVP SCH (09:00)
[2021-11-25] MEDS ORDERED: MELOXICAM 7.5 MG TAB PO SCH (09:00)
[2021-11-25] MEDS ORDERED: LOSARTAN 50 MG TAB PO SCH (09:00)
[2021-11-25] MEDS ORDERED: METOPROLOL SUCCINATE (ER) 25 MG TAB.ER.24H PO SCH (09:00)
[2021-11-25] MEDS ORDERED: ENOXAPARIN 40 MG/0.4 ML SYRINGE SQ SCH (09:00)
--- NOTE | 2021-11-25 09:47 | P.DS ---
Providers Date of admission: 11/24/2021 Expected date of discharge: 11/25/21 Attending physician: Kenrick Gorman Consults: 11/24/21 14:54 Consult Physician Routine Consulting Provider: Sebas Kirby Reason/Comments: Medical management Do you want consulting provider notified?: Yes Primary care physician: Sebas Kirby Hospital Course: Date of admission: 11/24/2021 Date of discharge: 11/25/2021 Admission diagnosis: Right total hip arthroplasty Discharge diagnosis: Same Attending physician: Dr. Gorman Surgical procedures: Right total hip arthroplasty Brief history: Patient is a 76-year-old male with a history of progressive primary right hip osteoarthritis. At this point patient has failed conservative treatment measures and has opted to proceed with a elective right total hip arthroplasty. Hospital course: Details of patient's surgery can be found in operative report. Patient tolerated the procedure well and was subsequently transported to or [facility]. Patient's orthopeidc and medical care was provided daily. Patient had daily laboratory tests performed for evaluation of overall blood counts. Patient had daily physical therapy to include strengthening range of motion as well as education with walker ambulation. Patient was treated with Lovenox for their postoperative DVT prophylaxis during their inpatient stay. Patient was noted to have a relatively uneventful postoperative course. Patient reported satisfactory pain control with oral pain medications by postoperative day 1. Patient showed satisfactory progress with physical therapy. Patient moved steadily through the program and had no difficulty meeting the goals by postoperative day 1. Given patient's otherwise satisfactory course and having met physical therapy goals, plan is to discharge patient home with health services on postoperative day 1. Discharge condition/disposition: Patient will be discharged home with health services in stable condition. Discharge medications: Instructions are given on resumption of patient's normal daily medications per primary care recommendation, in addition patient will be prescribed [place] 7.5 mg/325 mg; Colace; patient has aspirin at home already. Discharge instructions: 1. Wound care and infection precautions, keep incision dry and covered while showering, no lotions, creams, moisturizers. No soaking, tubs, pools, hottubs. Do not scrub over the incision. 2. Weight-bear as tolerated with walker / cane until follow-up. 3. Ice and elevate when necessary. Do not exceed 20 minutes per hour with ice pack. 4. Utilize compression sleeve until seen at first follow up appointment. 5. Visiting nursing care. 6. Home physical therapy. 7. Pain meds and anticoagulants per prescription. 8. Pain medication has potential to cause constipation. Increase oral fluid and fiber intake. Contact primary care provider if you have not had a bowel movement within 48 hours after discharge 9. No anti-inflammatory medication until discussed at first post operative visit, this including Motrin, Aleve, Mobic, Diclofenac. 10. Follow up in office at 2 weeks postop with Rigo Valenzuela PA-C / Connor Walker PA-C 11. Follow up with your primary care doctor 7-10 days after discharge. 12. Contact [facility] with any questions, . Keep incision clean, dry, intact. While showering, cover silver foam dressing with Saran wrap. Silver foam dressing may removed in 7 days, 12/01/2021 Medications: [place] 7.5 mg/325 mg; Colace; Aspirin 81 mg BID x 30 days Assessment: Right hip osteoarthritis Procedures: Right total hip arthroplasty Patient Condition at Discharge: Good Plan - Discharge Summary Discharge Rx Participant: Yes New Discharge Prescriptions: New Docusate [Colace] 100 mg PO DAILY #30 capsule HYDROcodone/APAP 7.5-325MG [[place] 7.5] 1 each PO Q6HR PRN #28 tab PRN Reason: Pain No Action amLODIPine [Norvasc] 10 mg PO HS Metoprolol Succinate [Toprol Xl] 25 mg PO DAILY Acetaminophen [Tylenol Arthritis] 1,300 mg PO BID PRN PRN Reason: Pain Potassium Chloride ER [K-Dur 10] 10 meq PO DAILY Multivitamins, Thera [Multivitamin (formulary)] 1 tab PO DAILY Donepezil [Aricept] 10 mg PO HS DULoxetine HCL [Cymbalta] 30 mg PO 1700 Aspirin [Adult Low Dose Aspirin EC] 81 mg PO DAILY hydroCHLOROthiazide [Hydrodiuril] 25 mg PO DAILY Losartan Potassium 100 mg PO DAILY Discharge Medication List Acetaminophen [Tylenol Arthritis] 1,300 mg PO BID PRN 09/29/17 [History] Metoprolol Succinate [Toprol Xl] 25 mg PO DAILY 09/29/17 [History] amLODIPine [Norvasc] 10 mg PO HS 09/29/17 [History] Aspirin [Adult Low Dose Aspirin EC] 81 mg PO DAILY 11/20/21 [History] DULoxetine HCL [Cymbalta] 30 mg PO 1700 11/20/21 [History] Donepezil [Aricept] 10 mg PO HS 11/20/21 [History] Losartan Potassium 100 mg PO DAILY 11/20/21 [History] Multivitamins, Thera [Multivitamin (formulary)] 1 tab PO DAILY 11/20/21 [History] Potassium Chloride ER [K-Dur 10] 10 meq PO DAILY 11/20/21 [History] hydroCHLOROthiazide [Hydrodiuril] 25 mg PO DAILY 11/20/21 [History] Docusate [Colace] 100 mg PO DAILY #30 capsule 11/25/21 [Rx] HYDROcodone/APAP 7.5-325MG [[place] 7.5] 1 each PO Q6HR PRN #28 tab 11/25/21 [Rx] Follow up Appointment(s)/Referral(s): Lyle Valenzuela PAC [PHYSICIAN RAILROAD TRACK REPAIR SUPERVISOR] - 2 Weeks Patient Instructions/Handouts: Total Hip Replacement (DC) Activity/Diet/Wound Care/Special Instructions: Discharge instructions: 1. Wound care and infection precautions, keep incision dry and covered while showering, no lotions, creams, moisturizers. No soaking, tubs, pools, hottubs. Do not scrub over the incision. 2. Weight-bear as tolerated with walker / cane until follow-up. 3. Ice and elevate when necessary. Do not exceed 20 minutes per hour with ice pack. 4. Utilize compression sleeve until seen at first follow up appointment. 5. Visiting nursing care. 6. Home physical therapy. 7. Pain meds and anticoagulants per prescription. 8. Pain medication has potential to cause constipation. Increase oral fluid and fiber intake. Contact primary care provider if you have not had a bowel movement within 48 hours after discharge 9. No anti-inflammatory medication until discussed at first post operative visit, this including Motrin, Aleve, Mobic, Diclofenac. 10. Follow up in office at 2 weeks postop with Rigo Valenzuela PA-C / Connor Walker PA-C 11. Follow up with your primary care doctor 7-10 days after discharge. 12. Contact [facility] with any questions, . Keep incision clean, dry, intact. While showering, cover silver foam dressing with Saran wrap. Silver foam dressing may removed in 7 days, 12/01/2021 Medications: [place] 7.5 mg/325 mg; Colace; Aspirin 81 mg BID x 30 days Discharge Disposition: HOME WITH HOME HEALTH SERVICES
[2021-11-25 10:06] LABS: Basophils # (A) 0.04 X 10*3/uL (0.00-0.10); Basophils % (A) 0.4 %; Eosinophils # (A) 0.61 X 10*3/uL (0.04-0.35); Eosinophils % (A) 6.2 %; HCT 41.8 % (39.6-50.0); Immature Grans, Automated 0.3 %; Lymphocytes # (A) 0.77 X 10*3/uL (0.90-5.00); Lymphocytes % (A) 7.9 %; MCH 28.4 pg (27.0-32.0); MCHC 31.1 g/dL (32.0-37.0); MCV 91.5 fL (80.0-97.0); Mean Platelet Volume 11.6 fL (9.5-12.2); Monocytes # (A) 0.88 X 10*3/uL (0.20-1.00); NRBC Per 100 WBC 0 /100 WBCS (0.0-0.0); Neutrophils # (A) 7.44 X 10*3/uL (1.80-7.70); Neutrophils % (A) 76.2 %; Platelet Count 205 X 10*3/uL (140-440); RBC 4.57 X 10*6/uL (4.40-5.60); RDW 14.2 % (11.5-14.5); WBC 9.77 X 10*3/uL (4.50-10.00)
--- NOTE | 2021-11-25 11:39 | P.PN ---
Subjective Progress Note Date: 11/25/21 Principal diagnosis: Right hip osteoarthritis Patient seen at bedside this morning resting comfortably sitting up in chair. Patient says he did get up with physical therapy this morning walk around the room and up-and-down a couple steps. Patient says he does have walker at home. Patient denies chest pain, fever, shortness of breath, nausea, vomiting, change in vision, loss of bowel/bladder control. Objective - Vital Signs Vital signs: Vital Signs Temp 98.2 F 11/25/21 07:57 Pulse 54 L 11/25/21 07:57 Resp 16 11/25/21 07:57 BP 167/74 11/25/21 07:57 Pulse Ox 100 11/25/21 07:57 FiO2 Intake & Output 11/24/21 11/25/21 11/25/21 18:59 06:59 18:59 Intake Total 1351 Output Total 45 300 Balance 1306 -300 Weight 89.358 kg Intake: IV 1351 Output: Urine 300 Estimated Blood Loss 45 Other: Voiding Method Urinal Urinal # Voids 0 - Exam Right hip: Incision is clean, dry, and intact. The so silver foam dressing is in good condition. There is minimal soft tissue swelling and ecchymosis surrounding the medial and lateral aspects of the incision. Calf is soft, no tenderness with palpation. Plantar flexion, dorsiflexion, EHL, FHL are intact. Sensory exam to light touch throughout the extremity is intact, dorsal pedis pulses 2+. - Labs CBC & Chem 7: 11/25/21 05:24 Assessment and Plan Assessment: 1. Right hip osteoarthritis - Postoperative day 1 status post right total hip arthroplasty Plan: 1. Right hip osteoarthritis - right total hip arthroplasty performed yesterday, 11/24/2021. Patient stable at bedside this morning. Discharge home today with health services 2. Appreciate medical management 3. Pain management - [place] 7.5 mg/325mg 4. DVT prophylaxis - aspirin 81 mg twice a day 30 days 5. GI prophylaxis - senna 6. PT/OT - weightbearing as tolerated walker 7. Encourage incentive spirometer use 8. Discharge planning - home with health services today Time with Patient: Less than 30
[2021-11-25] MEDS ORDERED: DULoxetine HCL 30 MG CAPSULE.DR PO SCH (17:00)
[2021-11-25] MEDS ORDERED: amLODIPine 10 MG TAB PO SCH (21:00)
[2021-11-25] MEDS ORDERED: DONEPEZIL 10 MG TAB PO SCH (21:00)
--- NOTE | 2021-11-26 16:54 | P.CONS ---
History of Present Illness - Reason for Consult Consult date: 11/25/21 Medical management hypertension Requesting physician: Kenrick Gorman - Chief Complaint Osteoarthritis right hip - History of Present Illness This a pleasant 76-year-old gentleman with past medical history of prostate cancer, asbestosis asbestosis, osteoarthritis, hypertension, hyperlipidemia, sepsis, kidney stones, chronic back and neck pain, former nicotine dependence status post right total hip arthroplasty, postop day #1. Tolerated procedure well. Passing flatus. Pain controlled. Has not yet been out of bed yet, PT pending. Denies chest pain, palpitations or shortness of breath. Afebrile, normal WBC. Review of Systems ROS Statement: Those systems with pertinent positive or pertinent negative responses have been documented in the HPI. ROS Other: All systems not noted in ROS Statement are negative. Past Medical History Past Medical History: Cancer, Hyperlipidemia, Hypertension, Osteoarthritis (OA), Prostate Disorder Additional Past Medical History / Comment(s): hx. prostate cancer 2018, hx. asbestosis, chronic back & neck pain, hx. sepsis in June in [place] due to kidney stone blocking ureter, History of Any Multi-Drug Resistant Organisms: None Reported Past Surgical History: Appendectomy, Cholecystectomy, Heart Catheterization, Orthopedic Surgery, Prostate Surgery Additional Past Surgical History / Comment(s): ORIF right wrist, right shoulder surg, prostatectomy, cystoscopy w/bilateral ureteral stents, COLONOSCOPY, Past Anesthesia/Blood Transfusion Reactions: No Reported Reaction Past Psychological History: No Psychological Hx Reported Smoking Status: Former smoker Past Alcohol Use History: Occasional Additional Past Alcohol Use History / Comment(s): quit smoking 40 yrs. ago, smoked 1ppd for 20 yrs. Past Drug Use History: None Reported - Past Family History Mother Family Medical History: No Reported History Medications and Allergies Home Medications Medication Instructions Recorded Confirmed Type Acetaminophen [Tylenol Arthritis] 1,300 mg PO BID PRN 09/29/17 11/24/21 History Metoprolol Succinate [Toprol Xl] 25 mg PO DAILY 09/29/17 11/24/21 History amLODIPine [Norvasc] 10 mg PO HS 09/29/17 11/24/21 History Aspirin [Adult Low Dose Aspirin EC] 81 mg PO DAILY 11/20/21 11/24/21 History DULoxetine HCL [Cymbalta] 30 mg PO 1700 11/20/21 11/24/21 History Donepezil [Aricept] 10 mg PO HS 11/20/21 11/24/21 History Losartan Potassium 100 mg PO DAILY 11/20/21 11/24/21 History Multivitamins, Thera [Multivitamin 1 tab PO DAILY 11/20/21 11/24/21 History (formulary)] Potassium Chloride ER [K-Dur 10] 10 meq PO DAILY 11/20/21 11/24/21 History hydroCHLOROthiazide [Hydrodiuril] 25 mg PO DAILY 11/20/21 11/24/21 History Docusate [Colace] 100 mg PO DAILY #30 capsule 11/25/21 Rx HYDROcodone/APAP 7.5-325MG [[place] 1 each PO Q6HR PRN #28 tab 11/25/21 Rx 7.5] Allergies Allergy/AdvReac Type Severity Reaction Status Date / Time bee pollen Allergy Anaphylaxis Verified 11/24/21 11:27 bee venom protein (honey bee) Allergy Anaphylaxis Verified 11/24/21 11:27 Physical Exam Vitals: Vital Signs Temp Pulse Resp BP BP Pulse Ox 11/25/21 07:57 98.2 F 54 L 16 167/74 100 11/25/21 01:42 98.1 F 52 L 16 146/64 97 11/24/21 20:00 97.8 F 58 L 16 119/67 96 11/24/21 18:37 50 L 119/67 96 11/24/21 18:22 57 L 144/71 90 L 11/24/21 18:07 57 L 147/71 94 L 11/24/21 17:52 56 L 143/63 93 L Intake and Output 11/25/21 11/25/21 11/25/21 06:59 14:59 22:59 Output Total 300 Balance -300 Output: Urine 300 Other: Voiding Method Urinal PHYSICAL EXAM: VITAL SIGNS: As above GENERAL: Sitting up in bed, no acute distress HEENT: Conjunctivae normal. eyes normal.MMM. NECK: Supple, No JVD. No thyroid enlargement. No LNs CARDIOVASCULAR: S1, S2 regular..No murmur RESPIRATION: Breath sounds diminished in the bases. No rhonchi or crackles. No bronchial breathing. ABDOMEN: Soft, nontender . No guarding. no masses palpable. No ascites, No hepatosplenomegaly.Bowel sounds heard. LEGS: Right hip dressing clean dry and intact minimal ecchymosis, Soft, nontender. PSYCHIATRY: Alert and oriented X3, mood and affect normal. NERVOUS SYSTEM: Cranial N 2-12 grossly normal. No focal deficits. Strength and sensation grossly intact.. Skin: Warm and dry, no rash Results CBC & Chem 7: 11/25/21 05:24 Labs: Abnormal Lab Results - Last 24 Hours (Table) 11/25/21 Range/Units 05:24 MCHC 31.1 L (32.0-37.0) g/dL Lymphocytes # 0.77 L (0.90-5.00) X 10*3/uL Eosinophils # 0.61 H (0.04-0.35) X 10*3/uL Assessment and Plan Assessment: Right hip Osteoarthritis status post anterior right total hip arthroplasty Hypertension Hyperlipidemia Former nicotine dependence Plan: Continue on current medication regime ,monitoring and symptomatically treatment. Home meds have been reviewed and resumed, including antihypertensives. Aggressive pulmonary toileting. PT pending. Pain management and anticoagulation as per primary. Discharge planning in progress as per orthopedic surgery. Thank you for the consult. Follow-up with PCP in one week. The impression and plan of care has been dictated as directed. : I performed a history and examination of this patient, discussed the same with the dictator. I agree with the dictator's note ,documented as a scribe. Any additional findings or plans will be noted.
== END 2021-11-25 10:58 | disposition home health service (06) ==
LOC: OR 10:44 → 4SSUR 14:52 → OR 11-25 10:58
PROVIDERS: ATTEND Orthopaedic Surgery
DX: M16.11 Unilateral primary osteoarthritis, right hip (principal); E78.00 Pure hypercholesterolemia, unspecified; I10 Essential (primary) hypertension; Z79.82 Long term (current) use of aspirin; Z85.46 Personal history of malignant neoplasm of prostate; Z96.641 Presence of right artificial hip joint; G89.18 Other acute postprocedural pain
CPT/HCPCS: 27130; 97161; 97165; 64999; 86900; 86901; 88305; 85025; 86850; 88311; 73501; C1776; J2250; J3370 ×2; J1100; J2405; J0690; J1650; J3010; J2795; J2704; J1170

== ENCOUNTER 2023-10-06 07:43 | Day surgery (SDC) | payer MEDICARE ==
[~2023-10-06 07:43] MED LIST changes: -ACETAMINOPHEN TAB 500 MG TAB PO PRN; +LIDOCAINE 1% (10MG/ML) FOR IV START INTRADERMA PRN; -MELOXICAM 7.5 MG TAB PO PRN; -TRANEXAMIC ACID IN NACL,ISO-OS 1,000 MG in SALINE 1 100ML.BAG IVPB PRN; -VANCOMYCIN 1,500 MG in SODIUM CHLORIDE 0.9% 250 ML IVPB PRN
[2023-10-06] MEDS: LACTATED RINGERS 1,000 ML IV SCH (07:52)
[2023-10-06 08:10] VITALS: TEMP 98.6
--- NOTE | 2023-10-06 08:16 | P.GSHP ---
History of Present Illness H&P Date: 10/06/23 CHIEF COMPLAINT: Colon screen HISTORY OF PRESENT ILLNESS: The patient is a 78-year-old male who presents for colon screen. Lower endoscopy was offered for further evaluation and management. PAST MEDICAL HISTORY: Please see list. PAST SURGICAL HISTORY: Please see list. MEDICATIONS: Please see list. ALLERGIES: Please see list. SOCIAL HISTORY: No illicit drug use FAMILY HISTORY: No reports of Crohn disease or ulcerative colitis. REVIEW OF ORGAN SYSTEMS: CONSTITUTIONAL: No reports of fevers or chills. PHYSICAL EXAM: VITAL SIGNS: Stable GENERAL: Well-developed pleasant in no acute distress. HEENT: No scleral icterus. Extraocular movements grossly intact. Moist buccal mucosa. NECK: Supple without lymphadenopathy. CHEST: Unlabored respirations. Equal bilateral excursions. CARDIOVASCULAR: Regular rate and rhythm. Distal 2+ pulses. ABDOMEN: Soft, nontender, nondistended. MUSCULOSKELETAL: No clubbing, cyanosis, or edema. ASSESSMENT: 1. Colon screen. PLAN: 1. Recommend proceeding with a lower endoscopy Past Medical History Past Medical History: Cancer, Hyperlipidemia, Hypertension, Osteoarthritis (OA), Prostate Disorder Additional Past Medical History / Comment(s): Positive cologuard. NIDDM, prostate cancer 2018, hx. asbestosis, chronic back & neck pain, hx. sepsis in June in [place] due to kidney stone blocking ureter History of Any Multi-Drug Resistant Organisms: None Reported Past Surgical History: Appendectomy, Cholecystectomy, Heart Catheterization, Joint Replacement, Orthopedic Surgery, Prostate Surgery Additional Past Surgical History / Comment(s): ORIF right wrist, right shoulder surg, total R hip, prostatectomy, cystoscopy w/bilateral ureteral stents Past Anesthesia/Blood Transfusion Reactions: No Reported Reaction Past Psychological History: Depression Smoking Status: Former smoker Past Alcohol Use History: Occasional Additional Past Alcohol Use History / Comment(s): quit smoking 40 yrs. ago, smoked 1ppd for 20 yrs. Past Drug Use History: None Reported - Past Family History Mother History Unknown: Yes Family Medical History: No Reported History Father Family Medical History: Myocardial Infarction (NE) Medications and Allergies Home Medications Medication Instructions Recorded Confirmed Type Acetaminophen [Tylenol Arthritis] 1,300 mg PO BID PRN 09/29/17 10/06/23 History Metoprolol Succinate [Toprol Xl] 25 mg PO HS 09/29/17 10/06/23 History amLODIPine [Norvasc] 10 mg PO HS 09/29/17 10/06/23 History Aspirin [Adult Low Dose Aspirin EC] 81 mg PO HS 11/20/21 10/06/23 History DULoxetine HCL [Cymbalta] 30 mg PO 1700 11/20/21 10/06/23 History Donepezil [Aricept] 10 mg PO HS 11/20/21 10/06/23 History Losartan Potassium 100 mg PO QAM 11/20/21 10/06/23 History Multivitamins, Thera [Multivitamin 1 tab PO DAILY 11/20/21 10/06/23 History (formulary)] hydroCHLOROthiazide [Hydrodiuril] 25 mg PO QAM 11/20/21 10/06/23 History Atorvastatin [Lipitor] 20 mg PO HS 10/01/23 10/06/23 History Potassium Citrate [Potassium 10 meq PO TID-W/MEALS 10/01/23 10/06/23 History Citrate ER] Spironolactone 25 mg PO HS 10/01/23 10/06/23 History metFORMIN HCL 500 mg PO PC-SUPPER 10/01/23 10/06/23 History Allergies Allergy/AdvReac Type Severity Reaction Status Date / Time bee pollen Allergy Severe Anaphylaxis Verified 10/06/23 08:09 bee venom protein (honey bee) Allergy Severe Anaphylaxis Verified 10/06/23 08:09 Surgical - Exam Vital Signs Temp Pulse Resp BP Pulse Ox 98.6 F 65 18 171/77 94 L 10/06/23 07:54 10/06/23 07:54 10/06/23 07:54 10/06/23 07:54 10/06/23 07:54
[2023-10-06] MEDS ORDERED: PROPOFOL 10 MG/ML 20 ML VIAL IV ONE (08:21)
[2023-10-06 08:23] LABS: Glucose,Whole Blood 153 mg/dL (70-110)
[2023-10-06 09:12] LABS: Glucose,Whole Blood 146 mg/dL (70-110)
[2023-10-06 09:35] VITALS: BP 90/60; PULSE 85; RESP 16
--- NOTE | 2023-10-06 09:36 | P.PCN ---
Date of Procedure: 10/06/23 Description of Procedure: PREOPERATIVE DIAGNOSIS: Positive Cologuard Abnormal stool testing POSTOPERATIVE DIAGNOSIS: Tubular adenoma transverse colon Tubular adenoma sigmoid colon Internal/external hemorrhoids, grade 3 OPERATION: Colonoscopy to the ileocecal valve and appendiceal orifice, cecum Colonoscopy with hot snare polypectomy Colonoscopy with cold forceps biopsy SURGEON: Janet Eric MD. ANESTHESIA: MAC. INDICATIONS: The patient is an 78-year-old male who presents stool test, positive Cologuard. Diagnostic colonoscopy was presented. Benefits and risks were described and informed consent was obtained. DESCRIPTION OF PROCEDURE: The patient had undergone Sutab prep. The patient had been brought into the operating room and laid in the left lateral decubitus position. After adequate intravenous sedation, the rectum was examined with 2% lidocaine jelly. The prostate was unremarkable. External hemorrhoids were encountered. The rectal tone was within normal limits. No lesions were palpated in the rectal vault. An Olympus colonoscope was advanced until the cecum, ileocecal valve and appendiceal orifice were clearly viewed. The prep was good. No sigmoid diverticulosis was encountered. Colonic polyps were found and removed. No evidence of focal colitis was found. Retroflexion of the scope demonstrated grade 3 internal hemorrhoids without active bleeding or inflammation. The colon was desufflated. The patient had tolerated the procedure well. Withdrawal time was over 6 minutes. FINDINGS: Aronchick preparation quality scale 1+ (1-5) Internal hemorrhoids, grade 3 External hemorrhoids, grade 3 No arteriovenous malformations. No sigmoid diverticulosis Removal of 3 polyps: - Snare polypectomy 20 cm from the anal verge, 8 mm tubulovillous adenoma - Cold forceps biopsy at mid transverse colon x 2, 4 to 5 mm polyp. No focal colitis. RECOMMENDATIONS: Given severity of tubular adenomas, recommend repeat colonoscopy 3 years, 2026 Plan - Discharge Summary Discharge Rx Participant: No New Discharge Prescriptions: Continue amLODIPine [Norvasc] 10 mg PO HS Metoprolol Succinate [Toprol Xl] 25 mg PO HS Acetaminophen [Tylenol Arthritis] 1,300 mg PO BID PRN PRN Reason: Pain Multivitamins, Thera [Multivitamin (formulary)] 1 tab PO DAILY Donepezil [Aricept] 10 mg PO HS DULoxetine HCL [Cymbalta] 30 mg PO 1700 Aspirin [Adult Low Dose Aspirin EC] 81 mg PO HS Spironolactone 25 mg PO HS hydroCHLOROthiazide [Hydrodiuril] 25 mg PO QAM Losartan Potassium 100 mg PO QAM Atorvastatin [Lipitor] 20 mg PO HS metFORMIN HCL 500 mg PO PC-SUPPER Potassium Citrate [Potassium Citrate ER] 10 meq PO TID-W/MEALS Discharge Medication List Acetaminophen [Tylenol Arthritis] 1,300 mg PO BID PRN 09/29/17 [History] Metoprolol Succinate [Toprol Xl] 25 mg PO HS 09/29/17 [History] amLODIPine [Norvasc] 10 mg PO HS 09/29/17 [History] Aspirin [Adult Low Dose Aspirin EC] 81 mg PO HS 11/20/21 [History] DULoxetine HCL [Cymbalta] 30 mg PO 1700 11/20/21 [History] Donepezil [Aricept] 10 mg PO HS 11/20/21 [History] Losartan Potassium 100 mg PO QAM 11/20/21 [History] Multivitamins, Thera [Multivitamin (formulary)] 1 tab PO DAILY 11/20/21 [History] hydroCHLOROthiazide [Hydrodiuril] 25 mg PO QAM 11/20/21 [History] Atorvastatin [Lipitor] 20 mg PO HS 10/01/23 [History] Potassium Citrate [Potassium Citrate ER] 10 meq PO TID-W/MEALS 10/01/23 [History] Spironolactone 25 mg PO HS 10/01/23 [History] metFORMIN HCL 500 mg PO PC-SUPPER 10/01/23 [History] Follow up Appointment(s)/Referral(s): Janet Eric MD [STAFF PHYSICIAN] - As Needed Patient Instructions/Handouts: *Surgery [facility] - (Anesthesia) Discharge Instructions Outpatient Surgery, Colorectal Polyps (GEN), Colonoscopy (DC) Activity/Diet/Wound Care/Special Instructions: Repeat colonoscopy 3 years, 2026 Discharge Disposition: HOME SELF-CARE
== END 2023-10-06 09:33 | disposition home or self-care (01) ==
LOC: ORWHC2ENDO 07:43
PROVIDERS: ATTEND Surgery Plastic and Reconstructive Surgery
DX: D12.3 Benign neoplasm of transverse colon (principal); D12.5 Benign neoplasm of sigmoid colon; K64.2 Third degree hemorrhoids; I10 Essential (primary) hypertension; E78.5 Hyperlipidemia, unspecified; E11.9 Type 2 diabetes mellitus without complications; M19.90 Unspecified osteoarthritis, unspecified site; F10.90 Alcohol use, unspecified, uncomplicated; F32.A Depression, unspecified; Z85.46 Personal history of malignant neoplasm of prostate; Z79.899 Other long term (current) drug therapy; Z79.82 Long term (current) use of aspirin; Z79.84 Long term (current) use of oral hypoglycemic drugs; Z90.49 Acquired absence of other specified parts of digestive tract; Z95.5 Presence of coronary angioplasty implant and graft; Z98.890 Other specified postprocedural states; Z82.49 Family history of ischemic heart disease and other diseases of the circulatory system
CPT/HCPCS: 45380; 45385; J2704; 88305

== ENCOUNTER → 2023-11-05 | Outpatient (CLI) | payer MEDICARE | END | disposition home or self-care (01) | LOC: LABWHC1 13:08 | PROVIDERS: ATTEND Urology | DX: C61 Malignant neoplasm of prostate (principal) | CPT/HCPCS: 36415; 84153 ==

== ENCOUNTER → 2023-12-10 | Outpatient (CLI) | payer MEDICARE ==
--- NOTE | 2023-12-11 11:43 | MR ---
EXAMINATION TYPE: MR shoulder LT wo con DATE OF EXAM: 12/10/2023 COMPARISON: None HISTORY: Pop in Left Shoulder, no known trauma TECHNIQUE: Multiplanar, multisequence imaging of the left shoulder is performed without contrast. FINDINGS: There is no bone contusion or fracture. There is marked osteoarthritic change of the AC joint and there is a small subacromial spur resulting in mild shoulder impingement. There is a full-thickness tear of the supraspinatus tendon without retraction. There are multiple sma ll rim rent tears of the infraspinatus tendon. There is marked subacromial and subdeltoid bursitis.. The biceps tendon is not dislocated. There is thickening and marked abnormal signal intensity in the proximal biceps tendon distal to the biceps anchor consistent with partial tearing or tendinosis. The re is partial tearing or tendinosis of the subscapularis tendon. The cartilaginous labrum is intact. There is a tiny glenohumeral joint effusion. IMPRESSION: 1. Marked degenerative changes AC joint resulting in mild shoulder impingement. 2. Full-thickness tear of the supraspinatus tendon without retraction. 3. Multiple small rim rent tears of the infraspinatus tendon. 4. Multiple intrasubstance tears/tendinosis of the proximal biceps tendon and subscapularis tendon as described above. 5. Marked subacromial and subdeltoid bursitis
== END | disposition home or self-care (01) ==
LOC: RADMRIMAIN 09:32
PROVIDERS: ATTEND Orthopaedic Surgery
DX: M25.812 Other specified joint disorders, left shoulder (principal); M19.012 Primary osteoarthritis, left shoulder; M75.122 Complete rotator cuff tear or rupture of left shoulder, not specified as traumatic; M67.814 Other specified disorders of tendon, left shoulder

== ENCOUNTER 2024-01-27 06:30 | Day surgery (SDC) | payer MEDICARE ==
[~2024-01-27 06:30] MED LIST changes: +DEXAMETHASONE SOD PHOSPHATE 4 MG/ML 1 ML VIAL ONE; +LACTATED RINGERS 1,000 ML BAG ONE; -LIDOCAINE 1% (10MG/ML) FOR IV START INTRADERMA PRN; +ONDANSETRON 4 MG/2 ML VIAL ONE
[2024-01-27] MEDS ORDERED: MIDAZOLAM 2 MG/2 ML VIAL ONE (06:54)
[2024-01-27] MEDS ORDERED: DEXAMETHASONE SOD PHOSPHATE 4 MG/ML 1 ML VIAL ONE ×2 (06:54→07:24)
[2024-01-27] MEDS ORDERED: SODIUM CHLORIDE 0.9% (PF) VIAL 0 ML ONE (06:55)
[2024-01-27] MEDS ORDERED: ROPIVACAINE 5 MG/ML 30 ML VIAL ONE ×2 (06:55→07:24)
[2024-01-27] MEDS ORDERED: SUCCINYLCHOLINE CHLORIDE 200 MG/10 ML VIAL IV ONE (07:24)
[2024-01-27] MEDS ORDERED: LIDOCAINE 1% INJ 10MG/ML (20 ML MDV) ONE (07:24)
[2024-01-27] MEDS ORDERED: PROPOFOL 10 MG/ML 20 ML VIAL IV ONE (07:24)
--- NOTE | 2024-02-04 15:54 | OP ---
OPERATIVE REPORT DATE OF SERVICE : 01/27/2024 PREOPERATIVE DIAGNOSIS: Left shoulder impingement. POSTOPERATIVE DIAGNOSES: 1. Left shoulder rotator cuff tear. 2. Left shoulder impingement. 3. Left shoulder bicipital tendinitis/partial tear. 4. 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 5. Left shoulder acromioclavicular joint osteoarthritis. 6. Left shoulder superior/anterior labral tear. PROCEDURES PERFORMED: 1. Left shoulder arthroscopic rotator cuff repair. 2. Left shoulder arthroscopic subacromial decompression. 3. Left shoulder arthroscopic biceps tenodesis. 4. Left shoulder arthroscopic microfracture, humeral head. 5. Left shoulder arthroscopic Steven procedure. 6. Left shoulder arthroscopic debridement of labral tear. AGRICULTURAL CHEMIST: Lyle Valenzuela. ANESTHESIA: General with a preoperative interscalene block. IMPLANTS UTILIZED: One Arthrex 4.75 SwiveLock anchor. ESTIMATED BLOOD LOSS: 10 mL. COMPLICATIONS: None. The patient tolerated the procedure well. INDICATIONS FOR PROCEDURE: Johan Garcia is a gentleman seen with progressive left shoulder pain. After having treatment options discussed, he elected to proceed with left shoulder arthroscopy. Consent regarding the procedure was obtained. DESCRIPTION OF PROCEDURE: The patient was taken to the operative suite. He had undergone an interscalene block by the Department of Anesthesia for postoperative pain management. He underwent a general anesthetic by Department of Anesthesia. He received preoperative IV antibiotics. He was placed in lateral recumbent position. The bony prominences were padded. He was secured. The left upper extremity was placed on 10 pounds of longitudinal traction. The left shoulder was prepped and draped in normal sterile orthopedic fashion. A posterior incision was made for a posterior working portal site. The trocar was inserted into the glenohumeral joint. Arthroscopy was now initiated anterior working portal site. I made an incision followed by trocar and probe. There was superficial tearing of the anterior superior labrum. There was an area of grade 3/4 chondromalacia of the humeral head measuring just over a centimeter. There was partial tearing and hyperemia along the biceps tendon, consistent with bicipital tendinitis/partial tear. I introduced the motorized shaver, I debrided out superficial labral tears. I performed a chondroplasty of the humeral head. I did note an area of exposed bone. Again, this measured maybe just over a centimeter. I would use a microfracture awl to perform a microfracture to the area of exposed bone, humeral head penetrating the bone with resultant bleeding of the microfracture site. I now decided to proceed with arthroscopic biceps tenodesis. I introduced a cannula through the anterior portal site. I performed a Loop 'N' Tack type stitch to the actual biceps tendon and I released it from the superior anchor with the assistance of Lyle Valenzuela. I punched hole at the interval for insertion of an anchor. The suture limb was plasty passed through the eyelet of an Arthrex 4.75 SwiveLock anchor. I placed the eyelet into pre-punched hole and positioned while CASANDRA Skinner tensioned the suture and deployed the anchor with good fixation noted. The residual suture limb was clipped. We had a stable appearing biceps tenodesis. At this point, instruments were removed from the glenohumeral joint. The cannula was now introduced into the subacromial space through the posterior working portal site. I now made a lateral incision for the lateral portal site. I introduced a trocar, followed by our ArthroCare cautery. I now debrided the subacromial space of thick bursal tissue, which exposed the undersurface of the acromion, which was very prominent with diminished space. A katina was introduced. I performed a subacromial decompression, decompressing the area nicely. I turned my attention to the acromioclavicular joint. There was a fair amount of osteoarthritis there. I did remove some osteophytes along the anterior aspect of the clavicle. I now introduced my motorized katina through the anterior working portal site and performed a Steven procedure, removing 8 mm of bone off the distal clavicle. We had a good stable appearing Steven/acromioclavicular resection arthroplasty. At this point, I turned my attention to the rotator cuff tendon. There was significant tearing along the midportion of the supraspinatus tendon. There was a full-thickness tear there. I debrided the margins utilizing a motorized shaver, getting down a stable tendon tissue. With the assistance of CASANDRA Skinner, I now passed two sutures through the tendon for [id number] repair, and I repaired the tendon with the [id number] repair. The sutures were clipped, we had a stable appearing repair of the rotator cuff tendon. At this point, instruments were removed from the subacromial space. The three portal sites were repaired utilizing 3-0 nylon suture. Sterile dressings were applied. The patient was placed into a sling, awakened, transferred to a bed, then recovery in stable condition. CASANDRA Skinner, assisted in all aspects of this procedure. MMODL / IJN: [id number] /
--- NOTE | 2024-02-24 15:34 | HP ---
HISTORY AND PHYSICAL DATE OF SURGERY: 01/27/2024. HISTORY OF PRESENT ILLNESS: Johan Garcia is a gentleman seen with progressive left shoulder pain consistent with rotator cuff tear, impingement and acromioclavicular joint osteoarthritis as well as a bicipital tendinitis. After having treatment options discussed, he elected to proceed with left shoulder arthroscopy. Consent was obtained. PAST MEDICAL HISTORY: Noncontributory. SURGICAL HISTORY: Noncontributory. DAILY MEDICATIONS: As per his Cardiology clearance. Evaluation of his left shoulder, there is limited range of motion. Positive impingement sign. Drop-arm signs positive. Weakness with external rotation. Distal neurovascular exam is intact. IMPRESSION: Left shoulder impingement with rotator cuff tear, acromioclavicular joint osteoarthritis, bicipital tendinitis, and impingement. PLAN: Left shoulder arthroscopy with subacromial decompression, rotator cuff repair, Steven procedure, and biceps tenodesis. MMODL / IJN: [id number] /
== END 2024-01-27 11:10 ==
LOC: OR 06:30
PROVIDERS: ATTEND Orthopaedic Surgery
DX: S46.012A Strain of muscle(s) and tendon(s) of the rotator cuff of left shoulder, initial encounter (principal); M19.012 Primary osteoarthritis, left shoulder; M75.42 Impingement syndrome of left shoulder; M75.22 Bicipital tendinitis, left shoulder; X58.XXXA Exposure to other specified factors, initial encounter
CPT/HCPCS: 64415

== ENCOUNTER → 2024-04-07 | Outpatient (CLI) | payer MEDICARE ==
[2024-04-07 15:34] LABS: BUN/Creat Ratio 33.86 Ratio (12.00-20.00); Blood Urea Nitrogen 47.4 mg/dL (9.0-27.0); Carbon Dioxide 23.5 mmol/L (21.6-31.8); Chloride 99 mmol/L (96-109); Glucose 142 mg/dL (70-110); Potassium 4.7 mmol/L (3.5-5.5); Sodium 137 mmol/L (135-145)
[2024-04-07 15:35] LABS: ALT 18 U/L (10-49); AST 20 U/L (14-35); Albumin 4.6 g/dL (3.8-4.9); Albumin/Globulin Ratio 1.84 Ratio (1.60-3.17); Alkaline Phosphatase 79 U/L (41-126); Calcium 10.1 mg/dL (8.7-10.3); Globulin 2.5 g/dL (1.6-3.3); T4, Free (Free Thyroxine) 1.52 ng/dL (0.80-1.80); Total Bilirubin 0.4 mg/dL (0.3-1.2); Total Protein 7.1 g/dL (6.2-8.2)
== END | disposition home or self-care (01) ==
LOC: LABWHC1 07:01
PROVIDERS: ATTEND Family Medicine
CPT/HCPCS: 36415; 80053; 82533; 83036; 83970; 84146; 84439; 84443

== ENCOUNTER → 2024-05-03 | Outpatient (CLI) | payer MEDICARE ==
--- NOTE | 2024-05-03 18:22 | MR ---
EXAMINATION TYPE: MR concepcion/lspine wo con DATE OF EXAM: 05/03/2024 9:17 AM COMPARISON: 01/24/2024 05/26/2017. CLINICAL INDICATION: Male, 79 years old with history of M62.81 M54.5 M48.04 M54.6; PHH, Middle to low back pain TECHNIQUE: Multi planar, multi sequence imaging was performed utilizing: T1-weighted, T2-weighted, a nd turbo inversion recovery imaging of the thoracic and lumbar spine. IV Contrast: mL (None, if empty) FINDINGS: Alignment: The thoracic and lumbar vertebral bodies have preserved heights mild scoliotic alignment o f the lumbar spine.. Cord: The conus medullaris and the distal spinal cord appear unremarkable with regards to their signa l intensity and morphology. Bones/Discs: Bone signal is within normal limits. Multilevel degenerative disc disease is noted and most pronounced at the L2-L5. No abnormal edema on inversion recovery sequences. THORACIC: No evidence significant spinal canal or neural foraminal stenosis. Spinal cord is within no rmal limits. LUMBAR: T12-L1: No evidence of significant spinal canal stenosis or neural foraminal stenosis. L1-L2: No evidence of significant spinal canal stenosis or neural foraminal stenosis. L2-L3: Disc bulge and facet joint arthropathy result in mild spinal canal and moderate right and mode rate to severe left neural foraminal stenosis. L3-L4: Disc bulge and facet joint arthropathy result in mild spinal canal and moderate bilateral neur al foraminal stenosis. L4-L5: Disc bulge and facet joint arthropathy result in mild spinal canal and moderate bilateral neur al foraminal stenosis. L5-S1: The disc is rounded posterior morphology without significant spinal canal stenosis. Facet join t arthropathy with moderate neural foraminal stenosis. Other findings: None. IMPRESSION: 1. No definitive evidence of disc herniation or significant spinal canal stenosis. 2. Multilevel disc degeneration with associated osteoarthritic changes. No abnormal bony edema to arvizu ggest acute injury. Neural foraminal stenosis worse in the lumbar spine with moderate to severe left L2-L3. Degeneration changes worse in the spine from L2 to L5. [facility], , 05/03/2024 6:20 PM
== END | disposition home or self-care (01) ==
LOC: RADMRIMAIN 08:02
PROVIDERS: ATTEND Orthopaedic Surgery
DX: M48.04 Spinal stenosis, thoracic region (principal); M51.369 Other intervertebral disc degeneration, lumbar region without mention of lumbar back pain or lower extremity pain; M99.73 Connective tissue and disc stenosis of intervertebral foramina of lumbar region; M62.81 Muscle weakness (generalized)
CPT/HCPCS: 72146; 72148

== ENCOUNTER → 2024-09-13 | Outpatient (CLI) | payer MEDICARE ==
[2024-09-13 07:49] VITALS: RESP 16
[2024-09-13 07:55] VITALS: BP 120/81; PULSE 72
--- NOTE | 2024-09-13 15:18 | P.PAINPG ---
Objective - Vital Signs Vital signs: Intake & Output 09/12/24 09/13/24 09/13/24 18:59 06:59 18:59 Weight 83.915 kg PQRS Measure Charge Sheet Comment: HISTORY OF PRESENT ILLNESS: A 79 yr old male w at side presents today w severe and chronic thoracolumbar pain > 1 yr secondary to radiculopathy, spondylosis and facet arthropathy without myelopathy for evaluation. Pt states pain level is provoked at 8 /10 in intensity, constant, localized in the mid and lower lumbar spine, predominantly axial, achy in character without shooting pain . Pain is provoked by bending, lifting. Pain is alleviated by PT x 6 wks which ended in Fall 2023, physician guided home stretches daily since Fall 2023, medications, repositioning and rest . [place] 5/325mg is ineffective and has stopped taking it. Inteventional procedures include Medications include Flexeril, Tyl Arth REVIEW OF ORGAN SYSTEMS: CONSTITUTIONAL: No fevers or chills. No recent weight loss. NEUROLOGICAL: + numbness and tingling along the distal extremities. No seizure disorders or headaches. MUSCULOSKELETAL: + pain PSYCHIATRIC: Denies current depression or suicidal thoughts. Physical Examinations : Constitutional : Cooperative , not in acute distress . Neurologic : Cranial nerve II to XII intact. No focal neurological deficits. Psychiatric : alert & oriented x 3. Matching mood & appropriate affect. Judgment & insight intact. Musculoskeletal : Cervical Spine Motor strength in the deltoid and biceps: Normal right side. Normal Left side Motor strength biceps and the wrist extensors: Normal right side . Normal left side Motor strength in the triceps muscle: Normal right side. Normal left side Deep tendon reflexes: Normal at the biceps. Normal at Brachioradialis. Normal at triceps Vertebral body tenderness to deep palpation over Cervical facet loading test: positive bilaterally Spurling test: positive bilaterally Neck distraction test: positive bilaterally Angelica sign: positive bilaterally Lumbar spine Motor strength lower extremities ,thigh and legs 5/5 Right side , 5/5 Left side Deep tendon reflexes : Normal Knee Jerk. Normal Ankle Jerk Vertebral body tenderness over Everett Test positive Lumbar facet Loading Test: positive Right / positive Left Taut bands w twitch response over BL T10- S1 Range of motion of the lumbar spine Flexion 30 degrees, extension 10 degrees Straight Leg Raise test: Left/ Right positive at degrees Bhavik test: positive right / positive left. Severe tenderness over the Sacroiliac joint on the Right / Left sides Gaenslen test: positive bilaterally Seated flexion test: positive bilaterally. Sacral spine : Severe tenderness over the Sacroiliac joint: right side / left side Range of motion: Flexion of the lumbar spine <60 degrees Range of motion: Extension of the lumbar spine <20 degrees Gaenslen's Test positive Bhavik test: positive right side / left side Thigh Thrust Test Sacral Thrust Test Imaging: MRI non contrast thoracic/ lumbar spine from 05/03/24 reviewed Assessment/ Plan : Levoconvex scoliosis, L2-Pelvis DDD w Stenosis Recommendation of BL TPIs T10- S1 #1. Risks, benefits of procedure discussed and pt verbalized understanding. Ample supply of [place] 5/325mg #60 . Use, side effects, adverse reactions, safe storage discussed. Opioid/ narcotic agreement signed 07/19/24. All questions answered. I have spent greater than 30 minutes on patient care today. Dr Pacheco was available by phone for the evaluation of this patient. The time was used to review the medical records including relevant urine studies and Prescription history (MAPs), review of the available imaging, evaluation and examination of the patient, coordination of care with the medical staff and if applicable referring physicians, as well as creation of the medical record PQRS Narrative: Smoking Status Former smoker Hx Alcohol Use (MH) No Home Medications: Ambulatory Orders Acetaminophen [Tylenol Arthritis] 1,300 mg PO BID PRN 09/29/17 Metoprolol Succinate [Toprol Xl] 25 mg PO HS 09/29/17 amLODIPine [Norvasc] 10 mg PO HS 09/29/17 Aspirin [Adult Low Dose Aspirin EC] 81 mg PO HS 11/20/21 DULoxetine HCL [Cymbalta] 30 mg PO 1700 11/20/21 Donepezil [Aricept] 10 mg PO HS 11/20/21 Losartan Potassium 100 mg PO QAM 11/20/21 Multivitamins, Thera [Multivitamin (formulary)] 1 tab PO DAILY 11/20/21 hydroCHLOROthiazide [Hydrodiuril] 25 mg PO QAM 11/20/21 Atorvastatin [Lipitor] 20 mg PO HS 10/01/23 Potassium Citrate [Potassium Citrate ER] 10 meq PO TID-W/MEALS 10/01/23 Spironolactone 25 mg PO HS 10/01/23 metFORMIN HCL 500 mg PO PC-SUPPER 10/01/23 HYDROcodone/APAP 5-325MG [[place] 5-325] 1 tab PO BID PRN 30 Days #60 tab 07/19/24 HYDROcodone/APAP 5-325MG [[place] 5-325] 1 tab PO BID PRN 30 Days #60 tab 07/19/24 Controlled Substance Measures - Controlled Substance Measures Is patient prescribed a controlled substance at discharge?: No
== END ==
LOC: PNWHC3 07:23
PROVIDERS: ATTEND Specialist
DX: M51.16 Intervertebral disc disorders with radiculopathy, lumbar region (principal); M47.26 Other spondylosis with radiculopathy, lumbar region; M41.86 Other forms of scoliosis, lumbar region; M48.061 Spinal stenosis, lumbar region without neurogenic claudication; Z91.030 Bee allergy status; Z87.891 Personal history of nicotine dependence
CPT/HCPCS: 99211

== ENCOUNTER 2024-09-19 08:26 | Day surgery (SDC) | payer MEDICARE ==
[2024-09-15 16:13] VITALS: BMI 28.1
[2024-09-19] MEDS ORDERED: LACTATED RINGERS 1,000 ML IV SCH (08:49)
[2024-09-19 08:55] VITALS: TEMP 97.3
[2024-09-19 08:58] LABS: Glucose,Whole Blood 138 mg/dL (70-110)
[2024-09-19] MEDS ORDERED: methylPREDNISolone ACETATE 40 MG/ML 1 ML VIAL ONE (09:41)
[2024-09-19] MEDS ORDERED: ROPIVACAINE 5MG/ML 20ML VIAL ONE (09:41)
--- NOTE | 2024-09-19 09:58 | P.PCN ---
Date of Procedure: 09/19/24 Procedure(s) Performed: Procedure= trigger point injections thoracic and lumbar paraspinal muscles bilaterally , 4 on the right side from T10 to S1, and 4 on the left side from T10 to S1 Preoperative diagnosis= 1-myofascial pain syndrome thoracic and lumbar paraspinal muscles 2-lumbar degenerative disc disease 3-lumbar facet arthropathy Postoperative diagnosis=Same as preop Diagnosis . Complication = none Condition= stable Anesthesia= none Indication for the procedure= patient complaining of low back pain , examination was positive for multiple trigger point in the lumbar paraspinal muscles bilaterally and patient diagnosed with myofascial pain syndrome and is here to have trigger point injections Description of the procedure= procedure risk and benefits discussed with the patient, including but not limited, risk of infection and bleeding, and ALLERGIC reaction to the medication and not complete pain relief and patient agreed with the preceding patient taken to the operating room, placed in sitting position or standard monitors applied to the patient then after induction of anesthesia back prepped with chlorhexidine 3 times , then under sterile technique each of the trigger point that was marked in the preop holding area 4 on the right side thoracic and lumbar paraspinal muscles and 4 on the left side Thoracic and lumbar paraspinal muscles each one of them injected with the 2 mL of the mixture of ropivacaine 0.5% 16 ML mixed with 40 mg of Depo-Medrol and 2 mL of the mi xture injected at each trigger point after negative aspiration, using 25-gauge needle, injection done after negative aspiration under was no paresthesia during the injection patient tolerated the procedure well without any complications and he will follow up in the pain clinic in a few weeks
[2024-09-19 10:44] VITALS: BP 124/71; PULSE 89; RESP 18
== END 2024-09-19 10:23 | disposition home or self-care (01) ==
LOC: ORPAIN 08:26
PROVIDERS: ATTEND Specialist
DX: M79.18 Myalgia, other site (principal); M47.814 Spondylosis without myelopathy or radiculopathy, thoracic region; E11.9 Type 2 diabetes mellitus without complications; Z79.82 Long term (current) use of aspirin; Z79.1 Long term (current) use of non-steroidal anti-inflammatories (NSAID); Z91.030 Bee allergy status
CPT/HCPCS: 20553; J2795; J1010

== ENCOUNTER → 2024-10-12 | Outpatient (CLI) | payer MEDICARE ==
[2024-10-12 09:26] VITALS: BP 115/69; PULSE 73; RESP 16
--- NOTE | 2024-10-12 15:18 | P.PAINPG ---
PQRS Measure Charge Sheet Comment: HISTORY OF PRESENT ILLNESS: A 79 yr old male w at side presents today w severe and chronic thoracolumbar pain > 1 yr secondary to radiculopathy, spondylosis and facet arthropathy without myelopathy for evaluation s/p BL TPIs T10- S1 #1. Pt states he experienced 50 % pain relief x 3 wks s/p procedure. Pt states pain level is provoked at 8-9 /10 in intensity, constant, localized in the lower lumbar spine, predominantly axial, achy in character without shooting pain . Pain is provoked by standing for periods > 10 min. Pain is alleviated by PT x 6 wks which ended in Fall 2023, physician guided home stretches daily since Fall 2023, medications, use of a cane for ambulatory assistance, repositioning and rest . Inteventional procedures include BL TPIs T10- S1 x1 Medications include Flexeril, Tyl Arth REVIEW OF ORGAN SYSTEMS: CONSTITUTIONAL: No fevers or chills. No recent weight loss. NEUROLOGICAL: + numbness and tingling along the distal extremities. No seizure disorders or headaches. MUSCULOSKELETAL: + pain PSYCHIATRIC: Denies current depression or suicidal thoughts. Physical Examinations : Constitutional : Cooperative , not in acute distress . Neurologic : Cranial nerve II to XII intact. No focal neurological deficits. Psychiatric : alert & oriented x 3. Matching mood & appropriate affect. Judgment & insight intact. Musculoskeletal : Cervical Spine Motor strength in the deltoid and biceps: Normal right side. Normal Left side Motor strength biceps and the wrist extensors: Normal right side . Normal left side Motor strength in the triceps muscle: Normal right side. Normal left side Deep tendon reflexes: Normal at the biceps. Normal at Brachioradialis. Normal at triceps Vertebral body tenderness to deep palpation over Cervical facet loading test: positive bilaterally Spurling test: positive bilaterally Neck distraction test: positive bilaterally Angelica sign: positive bilaterally Lumbar spine Motor strength lower extremities ,thigh and legs 5/5 Right side , 5/5 Left side Deep tendon reflexes : Normal Knee Jerk. Normal Ankle Jerk Vertebral body tenderness over [place] Test positive Lumbar facet Loading Test: positive Right / positive Left L4-L5/ L5-S1 Taut bands w twitch response over BL T10- S1 Range of motion of the lumbar spine Flexion 30 degrees, extension 10 degrees Straight Leg Raise test: Left/ Right positive at degrees Bhavik test: positive right / positive left. Severe tenderness over the Sacroiliac joint on the Right / Left sides Gaenslen test: positive bilaterally Seated flexion test: positive bilaterally. Sacral spine : Severe tenderness over the Sacroiliac joint: right side / left side Range of motion: Flexion of the lumbar spine <60 degrees Range of motion: Extension of the lumbar spine <20 degrees Gaenslen's Test positive Bhavik test: positive right side / left side Thigh Thrust Test Sacral Thrust Test Imaging: MRI non contrast thoracic/ lumbar spine from 05/03/24 reviewed Assessment/ Plan : Levoconvex scoliosis, L2-Pelvis radiculopathy w Stenosis Recommendation of BL MBB L4-L5/ L5-S1 #1. Risks, benefits of procedure discussed and pt verbalized understanding. Use, side effects, adverse reactions, safe storage discussed. Minimal anesthesia including Fentanyl and Versed if clinically indicated. Opioid/ narcotic agreement signed 07/19/24. All questions answered. I have spent greater than 30 minutes on patient care today. Dr Pacheco was available by phone for the evaluation of this patient. The time was used to review the medical records including relevant urine studies and Prescription history (MAPs), review of the available imaging, evaluation and examination of the patient, coordination of care with the medical staff and if applicable referring physicians, as well as creation of the medical record PQRS Narrative: Smoking Status Former smoker Hx Alcohol Use (MH) No Home Medications: Ambulatory Orders Acetaminophen [Tylenol Arthritis] 1,300 mg PO BID PRN 09/29/17 Metoprolol Succinate [Toprol Xl] 25 mg PO HS 09/29/17 Aspirin [Adult Low Dose Aspirin EC] 81 mg PO HS 11/20/21 DULoxetine HCL [Cymbalta] 30 mg PO 1700 11/20/21 Donepezil [Aricept] 10 mg PO HS 11/20/21 Losartan Potassium 100 mg PO QAM 11/20/21 Multivitamins, Thera [Multivitamin (formulary)] 1 tab PO DAILY 11/20/21 hydroCHLOROthiazide [Hydrodiuril] 25 mg PO QAM 11/20/21 Atorvastatin [Lipitor] 20 mg PO HS 10/01/23 Potassium Citrate [Potassium Citrate ER] 10 meq PO TID-W/MEALS 10/01/23 Spironolactone 25 mg PO HS 10/01/23 metFORMIN HCL 500 mg PO PC-SUPPER 10/01/23 Ascorbic Acid [Vitamin C] 2,000 mg PO 1200 09/15/24 Calcium Carbonate [Calcium] 500 mg PO QAM 09/15/24 Celecoxib [CeleBREX] 200 mg PO BID 09/15/24 Cholecalciferol (Vitamin D3) [Vitamin D3 (50 Mcg = 2000 Iu)] 50 mcg PO 1200 09/15/24 Controlled Substance Measures - Controlled Substance Measures Is patient prescribed a controlled substance at discharge?: No
== END ==
LOC: PNWHC3 08:26
PROVIDERS: ATTEND Specialist
DX: M47.24 Other spondylosis with radiculopathy, thoracic region (principal); M48.061 Spinal stenosis, lumbar region without neurogenic claudication; M41.86 Other forms of scoliosis, lumbar region; M54.6 Pain in thoracic spine; Z91.030 Bee allergy status; Z87.891 Personal history of nicotine dependence
CPT/HCPCS: 99211

== ENCOUNTER 2024-10-27 06:20 | Day surgery (SDC) | payer MEDICARE ==
[2024-10-25 08:47] VITALS: BMI 28.1
[2024-10-27 07:21] VITALS: TEMP 97
[2024-10-27] MEDS: IV FLUID CONTINUATION 1,000 ML IV ONE ×2 (07:21→07:52)
[2024-10-27] MEDS: LACTATED RINGERS 1,000 ML BAG IV STA (07:23)
[2024-10-27] MEDS ORDERED: LACTATED RINGERS 1,000 ML IV SCH (07:30)
[2024-10-27 07:35] LABS: Glucose,Whole Blood 154 mg/dL (70-110)
[2024-10-27] MEDS ORDERED: MIDAZOLAM 2 MG/2 ML VIAL ONE (07:36)
[2024-10-27] MEDS ORDERED: ROPIVACAINE 5 MG/ML 30 ML VIAL ONE (07:36)
--- NOTE | 2024-10-27 07:45 | P.PCN ---
Date of Procedure: 10/27/24 Description of Procedure: Pre- and Post-operative Diagnosis: Lumbar facet arthropathy, and lumbar spondylosis without myelopathy. Procedure: #1 Diagnostic Medial Branch Block at bilateral Lumbar 4/5 and #1 diagnostic dorsal ramus block at Lumbar 5/ sacral ala levels (total 4 levels) Surgeon: Mylene Cooper Anesthesia: Local: 1% Lidocaine, IV sedation : Versed 2 mg. Sedation supervision timings: 360 274 Complications: None EBL: None Specimen removed: None Fluoroscopic image: Saved to patient electronic medical records. Indications for Procedure: The patient is well known to pain clinic for his chronic low back pain management. The lumbar facet loading test was positive with a clinical diagnosis of lumbar facet arthropathy. Failed with conservative therapy. Came here for interventional help for better pain relief. Procedure and Findings: The patient was seen and examined. The written informed consent was obtained after explaining the risks, benefits and alternatives of the procedure to the patient. The patient was brought to the procedure room and was placed in the prone position on the operating table table. A pillow was placed under the abdomen to reduce lumbar lordosis. Standard anesthesia monitoring was done through out the procedure. The skin preparation was done with ChloraPrep, and draping was done in usual sterile fashion. Sterile technique was observed throughout the procedure. Under fluoroscopic guidance, right the Lumbar 4, 5 and Sacral ala levels were identified in the AP view. For lumbar L4, and L5 levels the targeting area of superior articular process, and close to the most medial and superior aspect of transverse process identified, marked. 1ml of 1% Lidocaine was used with a 25 gauge needle to achieve adequate local anesthesia of the skin and subcutaneous tissue at each level. A 23 gauge 3.5 inch spinal needle was placed and advanced targeting area which was close to the most medial and superior aspect of the transverse process. For Lumbar 5/ sacral ala level, fluoroscope was used in the anteroposterior view, and the needle tip was placed at the superior and most medial part of sacral ala close to the superior articular process. A bony contact was obtained and needle tip position was confirmed at anteroposterior view. No paresthesia was noted. A negative aspiration was confirmed. 1 ml solution per level was injected, the block solution containing 6 ml of 0.5% r opivacaine preservative-free solution . The needles were removed intact. Entire procedure repeated on the left side. Lumbar area was cleaned and bandages were applied. Disposition : The patient tolerated the procedure very well. The patient was transferred to the recovery room and remained stable until discharged home. The patient was given detailed discharge instructions for infection, bleeding, and increased pain at the injection site, and was advised to seek immediate medical attention should significant side effects develop. The patient will be scheduled with Pain Clinic within 2-4 weeks for repeat procedure if it's helpful.
[2024-10-27 07:55] VITALS: RESP 18
--- NOTE | 2024-10-27 07:56 | FL ---
EXAMINATION TYPE: FL guided pain mgmt statistic DATE OF EXAM: 10/27/2024 7:51 AM COMPARISON: Pre Operative Images if available both CT/MRI or plain film CLINICAL INDICATION: Male, 79 years old with history of Pradeep Lumbar Facet; TECHNIQUE: FL guided pain mgmt statistic, multiple fluoroscopic images provided for procedure. DAP: 0.03216 mGym2 Gycm2 uGym2 cGycm2 or equivalent. FINDINGS: Fluoroscopic images during injection for pain management demonstrate multilevel degeneration changes throughout the spine. No evidence for fracture. No acute process identified. IMPRESSION: 1. No evidence for intraoperative complication. 2. Please see the operative/procedural note for further details. [facility], , 10/27/2024 7:54 AM
[2024-10-27 08:14] VITALS: BP 125/79; PULSE 63
== END 2024-10-27 08:25 | disposition home or self-care (01) ==
LOC: ORPAIN 06:20
DX: M47.816 Spondylosis without myelopathy or radiculopathy, lumbar region (principal); G89.29 Other chronic pain
CPT/HCPCS: 64493; 64494; J2250; J2795; 99152

== ENCOUNTER → 2024-11-20 | Outpatient (CLI) | payer MEDICARE ==
[2024-11-20 09:21] VITALS: BP 98/64; PULSE 66; RESP 19
--- NOTE | 2024-11-22 07:31 | P.PAINPG ---
Objective - Vital Signs Vital signs: Vital Signs Temp Pulse 66 11/20/24 09:11 Resp 19 11/20/24 09:11 BP 98/64 11/20/24 09:11 Pulse Ox 96 11/20/24 09:11 FiO2 Intake & Output 11/19/24 11/20/24 11/20/24 18:59 06:59 18:59 Weight 83.915 kg PQRS Measure Charge Sheet Mode of Arrival: Cane Comment: HISTORY OF PRESENT ILLNESS: A 79 yr old male w at side presents today w severe and chronic thoracolumb ar pain > 1 yr secondary to radiculopathy, spondylosis and facet arthropathy without myelopathy for evaluation s/p BL MBB L4-L5/ L5-S1 #1. Pt states he experienced 100 % pain relief x 6 hrs s/p procedure. Pt states pain level is provoked at 8-9 /10 in intensity, constant, localized in the lower lumbar spine, predominantly axial, achy in character without shooting pain . Pain is provoked by standing for periods > 10 min. Pain is alleviated by PT x 6 wks which ended in Fall 2023, physician guided home stretches daily since Fall 2023, medications, use of a cane for ambulatory assistance, repositioning and rest . Inteventional procedures include BL TPIs T10- S1 x1, BL MBB L3-L5 x1 Medications include Flexeril, Tyl Arth REVIEW OF ORGAN SYSTEMS: CONSTITUTIONAL: No fevers or chills. No recent weight loss. NEUROLOGICAL: + numbness and tingling along the distal extremities. No seizure disorders or headaches. MUSCULOSKELETAL: + pain PSYCHIATRIC: Denies current depression or suicidal thoughts. Physical Examinations : Constitutional : Cooperative , not in acute distress . Neurologic : Cranial nerve II to XII intact. No focal neurological deficits. Psychiatric : alert & oriented x 3. Matching mood & appropriate affect. Judgment & insight intact. Musculoskeletal : Cervical Spine Motor strength in the deltoid and biceps: Normal right side. Normal Left side Motor strength biceps and the wrist extensors: Normal right side . Normal left side Motor strength in the triceps muscle: Normal right side. Normal left side Deep tendon reflexes: Normal at the biceps. Normal at Brachioradialis. Normal at triceps Vertebral body tenderness to deep palpation over Cervical facet loading test: positive bilaterally Spurling test: positive bilaterally Neck distraction test: positive bilaterally Angelica sign: positive bilaterally Lumbar spine Motor strength lower extremities ,thigh and legs 5/5 Right side , 5/5 Left side Deep tendon reflexes : Normal Knee Jerk. Normal Ankle Jerk Vertebral body tenderness over [place] Test positive Lumbar facet Loading Test: positive Right / positive Left L4-L5/ L5-S1 Taut bands w twitch response over BL T10- S1 Range of motion of the lumbar spine Flexion 30 degrees, extension 10 degrees Straight Leg Raise test: Left/ Right positive at degrees Bhavik test: positive right / positive left. Severe tenderness over the Sacroiliac joint on the Right / Left sides Gaenslen test: positive bilaterally Seated flexion test: positive bilaterally. Sacral spine : Severe tenderness over the Sacroiliac joint: right side / left side Range of motion: Flexion of the lumbar spine <60 degrees Range of motion: Extension of the lumbar spine <20 degrees Gaenslen's Test positive Bhavik test: positive right side / left side Thigh Thrust Test Sacral Thrust Test Imaging: MRI non contrast thoracic/ lumbar spine from 05/03/24 reviewed Assessment/ Plan : Levoconvex scoliosis, L2-Pelvis radiculopathy w Stenosis Recommendation of BL MBB L4-L5/ L5-S1 #2. Risks, benefits of procedure discussed and pt verbalized understanding. Use, side effects, adverse reactions, safe storage discussed. Minimal anesthesia including Fentanyl and Versed if clinicall y indicated. Opioid/ narcotic agreement signed 07/19/24. All questions answered. I have spent greater than 30 minutes on patient care today. Dr Pacheco was available by phone for the evaluation of this patient. The time was used to review the medical records including relevant urine studies and Prescription history (MAPs), review of the available imaging, evaluation and examination of the patient, coordination of care with the medical staff and if applicable referring physicians, as well as creation of the medical record - Pain Location Lower Back Non-Pharmacological Interventions: Heat, Ice PQRS Narrative: Smoking Status Former smoker Blood Pressure 98/64 Pain Intensity [Lower Back] 10 Scale Used Numeric (1 - 10) Hx Alcohol Use (MH) No Home Medications: Ambulatory Orders Acetaminophen [Tylenol Arthritis] 1,300 mg PO BID PRN 09/29/17 Metoprolol Succinate [Toprol Xl] 25 mg PO HS 09/29/17 Aspirin [Adult Low Dose Aspirin EC] 81 mg PO HS 11/20/21 DULoxetine HCL [Cymbalta] 30 mg PO 1700 11/20/21 Donepezil [Aricept] 10 mg PO HS 11/20/21 Losartan Potassium 100 mg PO QAM 11/20/21 Multivitamins, Thera [Multivitamin (formulary)] 1 tab PO DAILY 11/20/21 hydroCHLOROthiazide [Hydrodiuril] 25 mg PO QAM 11/20/21 Atorvastatin [Lipitor] 20 mg PO HS 10/01/23 Potassium Citrate [Potassium Citrate ER] 10 meq PO TID-W/MEALS 10/01/23 Spironolactone 25 mg PO HS 10/01/23 metFORMIN HCL 500 mg PO PC-SUPPER 10/01/23 Ascorbic Acid [Vitamin C] 2,000 mg PO 1200 09/15/24 Calcium Carbonate [Calcium] 500 mg PO QAM 09/15/24 Celecoxib [CeleBREX] 200 mg PO BID 09/15/24 Cholecalciferol (Vitamin D3) [Vitamin D3 (50 Mcg = 2000 Iu)] 50 mcg PO 1200 Controlled Substance Measures - Controlled Substance Measures Is patient prescribed a controlled substance at discharge?: No
== END ==
LOC: PNWHC3 09:02
PROVIDERS: ATTEND Specialist
DX: M48.061 Spinal stenosis, lumbar region without neurogenic claudication (principal); M47.26 Other spondylosis with radiculopathy, lumbar region; M41.9 Scoliosis, unspecified; Z87.891 Personal history of nicotine dependence; Z91.030 Bee allergy status
CPT/HCPCS: 99212

== ENCOUNTER → 2024-11-24 | Outpatient (CLI) | payer MEDICARE ==
--- NOTE | 2024-11-24 13:53 | MR ---
EXAMINATION TYPE: MR shoulder RT wo con DATE OF EXAM: 11/24/2024 1:31 PM COMPARISON: X-ray 11/14/2024 CLINICAL INDICATION: Male, 79 years old with history of M25.511 R shoulkder pain, right shoulder pain TECHNIQUE: Multiplanar, multisequence imaging of the right shoulder is performed without contrast. FINDINGS: Rotator Cuff: There is diffuse abnormal signal throughout the distal margin of the supraspinatus and infraspinatus tendon. There may be a couple residual fibers with a complete or near complete through thickness tear. The distal margin of the body of the remaining tendon is seen just beyond the lateral margin of the acromion. Subscapularis appears intact with her substance signal likely related to tendinopathy. Acromioclavicular Joint: Marked hypertrophic change with impingement of the rotator cuff. Glenohumeral Joint: Moderate arthropathy. No erosive changes. Trace amount of of joint fluid. Labrum: Diffuse abnormal signal seen throughout the superior labrum. Biceps Tendon: There is increased fluid surrounding the biceps tendon compatible with tendinosis. The re is poor visualization of the tendon at the level of the proximal humerus. Could not exclude bicipi stephie tendon injury. Bone marrow signal: Cystic changes involving the humeral head likely in the basis of chronic impingem ent. There is spurring of the humeral head with elevation of the humerus relative to the glenoid. Add itional subcentimeter cysts involving the scapula. IMPRESSION: 1. Severe hypertrophic arthropathy AC joint with impingement. There is either complete or near comple te through thickness tear of the supraspinatus and infraspinatus tendons with minimal residual fibers . Note is made that the supraspinatus and infraspinatus muscles demonstrate atrophic changes. 2. Bicipital tendinosis. Portions of the biceps tendon are not well seen within the groove or along t he proximal humerus. Correlate for biceps tendon injury. 3. SLAP tear. 4. Subscapularis tendinosis. [facility], , 11/24/2024 1:51 PM
== END | disposition home or self-care (01) ==
LOC: RADMRIMAIN 12:55
PROVIDERS: ATTEND Orthopaedic Surgery
DX: M19.011 Primary osteoarthritis, right shoulder (principal); M67.813 Other specified disorders of tendon, right shoulder; M75.111 Incomplete rotator cuff tear or rupture of right shoulder, not specified as traumatic; M25.811 Other specified joint disorders, right shoulder

== ENCOUNTER 2024-12-12 06:24 | Day surgery (SDC) | payer MEDICARE ==
[2024-12-08 16:00] VITALS: BMI 28.1
[2024-12-12 07:00] VITALS: RESP 16; TEMP 97.7
[2024-12-12] MEDS: IV FLUID CONTINUATION 1,000 ML IV ONE ×2 (07:11→08:23)
[2024-12-12] MEDS: LACTATED RINGERS 1,000 ML IV SCH (07:12)
[2024-12-12 07:14] LABS: Glucose,Whole Blood 149 mg/dL (70-110)
[2024-12-12] MEDS ORDERED: ROPIVACAINE 5MG/ML 20ML VIAL ONE (07:58)
[2024-12-12] MEDS ORDERED: MIDAZOLAM 2 MG/2 ML VIAL ONE (07:58)
--- NOTE | 2024-12-12 08:33 | P.PCN ---
Description of Procedure: Preprocedure diagnosis. 1. Lumbar spondylosis with facet joint arthropathy without myelopathy. 2. Lumbar degenerative disc disease. Postprocedure diagnosis. As above. Procedure done. Bilateral diagnostic block with local anesthetics at L3, L4, L5 medial branch to target the facet joint L4- 5 and L5-S1 with fluoroscopic guidan ce (fluoroscopy images are available in the radiology department) . Anesthesia. Moderate sedation with intravenous Versed 2 mg and local infiltration with local anesthetics. In OR, continuous pulse ox, EKG, blood pressure and verbal communication was maintained. Sedation time-start 0758 end 0816 . Blood loss. Minimal. Indication. The patient has low back pain secondary to lumbar facet joint arthropathy. Discussed the procedure and alternative and complications which includes infection, bleeding, nerve damage, paralysis ,aggravation of pain. Patient understands and all questions were answered. Patient iunderstands that if any pain relief occurs it will last for a few hours to a few days maximum. Procedure description. After getting consent patient was taken in the OR in prone position. Back prepped with chlorhexidine and draped in sterile fashion. After injecting 5 mL of plain 1% lidocaine subcutaneously, a 22-gauge spinal needle was introduced under tunnel vision of the fluoroscope at the junction of the superior articular process with RIGHT ala of the sacrum. With slight oblique fluoroscope, after injecting 5 mL of plain 1% lidocaine subcutaneously, a 22-gauge spinal needle was introduced under tunnel vision of the fluoroscope at the junction of the superior articular process with RIGHT L5 transverse process, junction of the superior articular process with the RIGHT L4 transverse process. Negative CSF, negative blood, negative paresthesia. After needle position confirmation by AP and crosstable lateral view, after negative aspiration, half milliliters of solution were injected at each point. Total 1- 1/2 mL of solution was injected on the right side which consists of 0.5% ropivacaine. In exactly same way, LEFT sided injections were done at the following 3 points. Junction of the superior articular process with left ala of the sacrum, junction of the superior articular process with the left L5 transverse process, junction of the superior articular process with left L4 transverse process using 0.5 mL of solution at each point. Total 1-1/2 mL of solution was injected on the left side which consists of 0.5% ropivacaine . Spinal needles were taken out and bandages were applied. Disposition. Patient tolerated the procedure well. No complication. Discharged home in stable condition
[2024-12-12 08:56] VITALS: BP 124/73; PULSE 56
--- NOTE | 2024-12-12 11:26 | FL ---
EXAMINATION TYPE: FL guided pain mgmt statistic Intraoperative/procedural fluoroscopic services were provided. CLINICAL INDICATION:Male, 79 years old with history of FACET BLOCK OSITO LUMBAR; , [facility] FINDINGS: Fluoroscopic images demonstrating bilateral lumbar facet block. Multilevel degenerative disc disease of the lumbar spine. No radiographic evidence for complication. Total fluoroscopy time is 50.5 seconds. DAP: 0.66471 mGym2 Please see the operative/procedural note for further details. [facility], , 12/12/2024 11:24 AM
== END 2024-12-12 09:03 | disposition home or self-care (01) ==
LOC: ORPAIN 06:24
PROVIDERS: ATTEND Pain Medicine Interventional Pain Medicine
DX: M47.816 Spondylosis without myelopathy or radiculopathy, lumbar region (principal); M51.369 Other intervertebral disc degeneration, lumbar region without mention of lumbar back pain or lower extremity pain; E11.9 Type 2 diabetes mellitus without complications; Z79.84 Long term (current) use of oral hypoglycemic drugs; Z91.030 Bee allergy status
CPT/HCPCS: 64493; 64494; J2250; J2795; 99152

== ENCOUNTER → 2025-01-03 | Outpatient (CLI) | payer MEDICARE ==
[2025-01-03 09:27] VITALS: BP 157/81; PULSE 68; RESP 16; TEMP 97.9
--- NOTE | 2025-01-03 15:56 | P.PAINPG ---
PQRS Measure Charge Sheet Comment: HISTORY OF PRESENT ILLNESS: A 79 yr old male w at side presents today w severe and chronic thoracolumbar pain > 1 yr secondary to radiculopathy, spondylosis and facet arthropathy without myelopathy for evaluation s/p BL MBB L4-L5/ L5-S1 #2. Pt states he experienced 100 % pain relief x 24 hrs s/p procedure. Pt states pain level is provoked at 8-9 /10 in intensity, constant, localized in the lower lumbar spine, predominantly axial, achy in character without shooting pain . Pain is provoked by standing for periods > 10 min. Pain is alleviated by PT x 6 wks which ended in Fall 2023, physician guided home stretches daily since Fall 2023, medications, use of a cane for ambulatory assistance, repositioning and rest . Inteventional procedures include BL TPIs T10- S1 x1, BL MBB L3-L5 x2 Medications include Flexeril, Tyl Arth REVIEW OF ORGAN SYSTEMS: CONSTITUTIONAL: No fevers or chills. No recent weight loss. NEUROLOGICAL: + numbness and tingling along the distal extremities. No seizure disorders or headaches. MUSCULOSKELETAL: + pain PSYCHIATRIC: Denies current depression or suicidal thoughts. Physical Examinations : Constitutional : Cooperative , not in acute distress . Neurologic : Cranial nerve II to XII intact. No focal neurological deficits. Psychiatric : alert & oriented x 3. Matching mood & appropriate affect. Judgment & insight intact. Musculoskeletal : Cervical Spine Motor strength in the deltoid and biceps: Normal right side. Normal Left side Motor strength biceps and the wrist extensors: Normal right side . Normal left side Motor strength in the triceps muscle: Normal right side. Normal left side Deep tendon reflexes: Normal at the biceps. Normal at Brachioradialis. Normal at triceps Vertebral body tenderness to deep palpation over Cervical facet loading test: positive bilaterally Spurling test: positive bilaterally Neck distraction test: positive bilaterally Angelica sign: positive bilaterally Lumbar spine Motor strength lower extremities ,thigh and legs 5/5 Right side , 5/5 Left side Deep tendon reflexes : Normal Knee Jerk. Normal Ankle Jerk Vertebral body tenderness over [place]rett Test positive Lumbar facet Loading Test: positive Right / positive Left L4-L5/ L5-S1 Taut bands w twitch response over BL T10- S1 Range of motion of the lumbar spine Flexion 30 degrees, extension 10 degrees Straight Leg Raise test: Left/ Right positive at degrees Bhavik test: positive right / positive left. Severe tenderness over the Sacroiliac joint on the Right / Left sides Gaenslen test: positive bilaterally Seated flexion test: positive bilaterally. Sacral spine : Severe tenderness over the Sacroiliac joint: right side / left side Range of motion: Flexion of the lumbar spine <60 degrees Range of motion: Extension of the lumbar spine <20 degrees Gaenslen's Test positive Bhavik test: positive right side / left side Thigh Thrust Test Sacral Thrust Test Imaging: MRI non contrast thoracic/ lumbar spine from 05/03/24 reviewed Assessment/ Plan : Levoconvex scoliosis, L2-Pelvis radiculopathy w Stenosis Recommendation of BL RFA L4-L5/ L5-S1. Risks, benefits of procedure discussed and pt verbalized understanding. Use, side effects, adverse reactions, safe storage discussed. Minimal anesthesia including Fentanyl and Versed if clinically indicated. Opioid/ narcotic agreement signed 07/19/24. All questions answered. I have spent greater than 30 minutes on patient care today. Dr Pacheco was available by phone for the evaluation of this patient. The time was used to review the medical records including relevant urine studies and Prescription history (MAPs), review of the available imaging, evaluation and examination of the patient, coordination of care with the medical staff and if applicable referring physicians, as well as creation of the medical record - Pain Location Bilateral Lower Back Non-Pharmacological Interventions: Heat, Home Exercise, Inactivity, Physical Therapy, Position/Reposition, Sitting, Standing, Stretching Pharmacological Interventions: Block, Epidural, PRN Medication, Topical Medication PQRS Narrative: Smoking Status Former smoker Hx Alcohol Use (MH) No Home Medications: Ambulatory Orders Acetaminophen [Tylenol Arthritis] 1,300 mg PO BID PRN 09/29/17 Metoprolol Succinate [Toprol Xl] 25 mg PO HS 09/29/17 Aspirin [Adult Low Dose Aspirin EC] 81 mg PO HS 11/20/21 DULoxetine HCL [Cymbalta] 30 mg PO 1700 11/20/21 Donepezil [Aricept] 10 mg PO HS 11/20/21 Losartan Potassium 100 mg PO QAM 11/20/21 Multivitamins, Thera [Multivitamin (formulary)] 1 tab PO DAILY 11/20/21 Atorvastatin [Lipitor] 20 mg PO HS 10/01/23 Potassium Citrate [Potassium Citrate ER] 10 meq PO TID-W/MEALS 10/01/23 metFORMIN HCL 500 mg PO BID 10/01/23 Ascorbic Acid [Vitamin C] 2,000 mg PO 1200 09/15/24 Calcium Carbonate [Calcium] 500 mg PO QAM 09/15/24 Celecoxib [CeleBREX] 200 mg PO BID 09/15/24 Cholecalciferol (Vitamin D3) [Vitamin D3 (50 Mcg = 2000 Iu)] 50 mcg PO 1200 09/15/24 Controlled Substance Measures - Controlled Substance Measures Is patient prescribed a controlled substance at discharge?: No
== END | disposition home or self-care (01) ==
LOC: PNWHC3 08:48
PROVIDERS: ATTEND Specialist
DX: M48.061 Spinal stenosis, lumbar region without neurogenic claudication (principal); M47.26 Other spondylosis with radiculopathy, lumbar region; M41.9 Scoliosis, unspecified; Z91.030 Bee allergy status; Z87.891 Personal history of nicotine dependence
CPT/HCPCS: 99211